=== PATIENT | male | born 1965 | race Caucasian/White ===

== ENCOUNTER 2020-03-15 17:16 | Emergency (ER) | payer MEDICAID ==
[~2020-03-15] VITALS: Ht 182.9 cm; Wt 118.2 kg
[~2020-03-15 17:16] MED LIST: INSU100V9 SQ; LISI10TA4 PO; METO50TA16 PO; PRED10TA; [UNRECOGNIZED DRUG - CODE] PO
[2020-03-15] MEDS ORDERED: normal saline 1000ml 1,000 ML IV ONE (18:10)
[2020-03-15 18:13] LABS: MEAN CORPUSCULAR HGB CONC 34.2 g/dL (33.0-36.5); MEAN PLATELET VOLUME 8.9 FL (7.4-10.4)
[2020-03-15 18:15] LABS: BASOPHILS % (AUTO) 0.7 % (0-1); EOSINOPHILS % (AUTO) 0.6 % (0-6); HEMATOCRIT 45.8 % (42.0-52.0); HEMOGLOBIN 15.6 g/dl (14.0-17.9); LYMPHOCYTES # (AUTO) 0.7 X10'3 (1.1-4.8); LYMPHOCYTES % (AUTO) 26.8 % (21-51); MEAN CORPUSCULAR HEMOGLOBIN 29.8 PG (27.0-31.0); MEAN CORPUSCULAR VOLUME 87.2 FL (78-98); MONOCYTES # (AUTO) 0.3 X10'3 (0-0.9); MONOCYTES % (AUTO) 11.5 % (2-12); NEUTROPHILS # (AUTO) 1.7 X10'3 (1.8-7.7); NEUTROPHILS % (AUTO) 60.4 % (42-75); PLATELET COUNT 137 X10'3 (140-440); RED BLOOD COUNT 5.25 X10'6 (4.70-6.10); RED CELL DISTRIBUTION WIDTH 13.5 % (11.5-14.5); WHITE BLOOD COUNT 2.7 X10'3 (4.5-11.0)
[2020-03-15 18:27] LABS: ALANINE AMINOTRANSFERASE 42 U/L (12-78); ALBUMIN/GLOBULIN RATIO 0.7 (1.1-1.5); ALKALINE PHOSPHATASE 92 IU/L (46-116); ANION GAP 11 (8-16); ASPARTATE AMINO TRANSFERASE 23 U/L (10-37); BILIRUBIN,TOTAL 0.4 MG/DL (0.1-1.0); BLOOD UREA NITROGEN 21 MG/DL (7-18); BUN/CREATININE RATIO 17.5 (5.4-32.0); CALCIUM 9.3 MG/DL (8.5-10.1); CHLORIDE 95 MMOL/L (99-107); POTASSIUM 4.5 MMOL/L (3.5-5.1); SODIUM 131 MMOL/L (135-145); TOTAL CARBON DIOXIDE 25.5 MMOL/L (24-32); TOTAL PROTEIN 7.3 G/DL (6.4-8.2); eGFR 63 ML/MIN
[2020-03-15 18:31] LABS: GLUCOSE 544 MG/DL (70-104)
[2020-03-15] MEDS ORDERED: acetaminophen 325mg tablet PO ONE (19:00)
--- NOTE | 2020-03-15 19:00 | NUR ---
PT STATES HE WOULD LIKE TO LEAVE AMA. ED SUPRIYA BLACKBURN MADE AWARE OF PT REQUEST. RECEVIED VERBAL ORDER FOR 650MG TYLENOL PO X1 DOSE NOW. PT STATES HE DOES WANT TYLENOL AND COVID SWAB BUT DOES NOT WANT THE REMAINDER OF FLUID BOLUS
[2020-03-15 19:16] VITALS: BP 158/108
[2020-03-15 22:46] LABS: PLATELET ESTIMATE DECREASED; TOTAL CELLS COUNTED 100
== END 2020-03-15 19:14 | disposition left against medical advice (07) ==
LOC: ER 17:17
DX: U07.1 COVID-19 (principal); E11.9 Type 2 diabetes mellitus without complications; I10 Essential (primary) hypertension
CPT/HCPCS: 36415; 71045; 80053; 82948; 83880; 84484; 85007; 85025; 87635; 93005; 96360; 99285; J7030

== ENCOUNTER 2021-12-02 20:05 | Emergency (ER) | payer MEDICAID ==
[~2021-12-02] VITALS: Ht 182.9 cm; Wt 118.2 kg
[~2021-12-02 20:05] MED LIST changes: +CLIN-167 PO; +LISI10TA27 PO; -LISI10TA4 PO; -[UNRECOGNIZED DRUG - CODE] PO
[2021-12-02 20:22] VITALS: BP 172/108
== END 2021-12-02 21:43 | disposition left against medical advice (07) ==
LOC: ER 20:06
DX: K08.89 Other specified disorders of teeth and supporting structures (principal); Z53.21 Procedure and treatment not carried out due to patient leaving prior to being seen by health care provider

== ENCOUNTER 2023-06-26 19:13 | Inpatient (IN) | payer MEDICAID ==
[~2023-06-26] VITALS: Ht 182.9 cm; Wt 119.8 kg
[2023-06-26 20:09] LABS: CLARITY,URINE CLOUDY (Clear); COLOR,URINE RED (Yellow); UA COLLECTION TYPE NON-SPECIFIED
[2023-06-26 20:12] LABS: BACTERIA,URINE FEW /HPF (Neg); RBC,URINE TNTC /HPF (0-2); SQUAMOUS EPITHELIAL CELL,UR FEW /LPF (FEW)
[2023-06-26] MEDS: CefTRIAXone 2gm/D5W 50ml BAG 50 ML IV SCH (20:18)
[2023-06-26] MEDS: HYDROmorphone 1 mg/ml syringe IV ONE (20:19)
[2023-06-26] MEDS: LidoCAINE 2% Topical Jelly 11mL syringe (UROJET) TOP ONE (20:23)
[2023-06-26 20:34] LABS: BASOPHILS # (AUTO) 0.1 X10'3 (0-0.2); BASOPHILS % (AUTO) 1.1 % (0-1); EOSINOPHILS # (AUTO) 0.2 X10'3 (0-0.9); EOSINOPHILS % (AUTO) 2.5 % (0-6); HEMOGLOBIN 16.4 g/dl (14.0-17.9); LYMPHOCYTES # (AUTO) 1.3 X10'3 (1.1-4.8); LYMPHOCYTES % (AUTO) 18.9 % (21-51); MEAN CORPUSCULAR HEMOGLOBIN 29.2 PG (27.0-31.0); MEAN CORPUSCULAR HGB CONC 34.2 g/dL (33.0-36.5); MEAN CORPUSCULAR VOLUME 85.6 FL (78-98); MEAN PLATELET VOLUME 8.7 FL (7.4-10.4); MONOCYTES # (AUTO) 0.6 X10'3 (0-0.9); MONOCYTES % (AUTO) 8.9 % (2-12); NEUTROPHILS # (AUTO) 4.8 X10'3 (1.8-7.7); NEUTROPHILS % (AUTO) 68.6 % (42-75); PLATELET COUNT 223 X10'3 (140-440); RED BLOOD COUNT 5.61 X10'6 (4.70-6.10); RED CELL DISTRIBUTION WIDTH 14.2 % (11.5-14.5); WHITE BLOOD COUNT 6.9 X10'3 (4.5-11.0)
[2023-06-26 22:03] LABS: ALANINE AMINOTRANSFERASE 28 U/L (12-78); ALBUMIN 3.2 G/DL (3.4-5.0); ALBUMIN/GLOBULIN RATIO 0.8 (1.1-1.5); ALKALINE PHOSPHATASE 50 IU/L (46-116); ANION GAP 11 (8-16); ASPARTATE AMINO TRANSFERASE 15 U/L (10-37); BILIRUBIN,TOTAL 0.4 MG/DL (0.1-1.0); BLOOD UREA NITROGEN 16 MG/DL (7-18); BUN/CREATININE RATIO 13.3 (10.0-20.0); CHLORIDE 104 MMOL/L (99-107); GLUCOSE 247 MG/DL (70-104); LIPASE 43 U/L (16-77); MAGNESIUM 2.1 MG/DL (1.5-2.4); POTASSIUM 4.1 MMOL/L (3.5-5.1); SODIUM 140 MMOL/L (135-145); TOTAL CARBON DIOXIDE 24.6 MMOL/L (24-32); TOTAL PROTEIN 7.2 G/DL (6.4-8.2); eCRCL 65 ML/MIN; eGFR 62 ML/MIN
[2023-06-26] MEDS ORDERED: potassium Cl 40MEQ/1/2NS 520ml 520 ML IV PRN (23:50)
[2023-06-26] MEDS ORDERED: magnesium hydroxide 30ml (MOM) UD suspension PO PRN (23:50)
[2023-06-26] MEDS ORDERED: magnesium 4gm in 100ml NS 100 ML IV PRN (23:50)
[2023-06-26] MEDS ORDERED: glucagon, human recombinant 1mg kit SUBCUT PRN (23:50)
[2023-06-26] MEDS ORDERED: magnesium 2GM in 50ml NS 50 ML IV PRN (23:50)
[2023-06-26] MEDS ORDERED: dextrose 50%-water 50ml dispensing syringe IV PRN ×2 (23:50)
[2023-06-26] MEDS ORDERED: DEXTROSE 15 GM of carb/4 tabs (each vial/BOTTLE has 4 tablets) PO PRN ×2 (23:50)
[2023-06-26] MEDS ORDERED: acetaminophen 325mg tablet PO PRN (23:50)
[2023-06-26] MEDS ORDERED: mag hydrox/Alum hydrox/simeth 30ml oral suspension PO PRN (23:50)
[2023-06-26] MEDS ORDERED: potassium Cl 20 mEq SR tablet PO PRN ×2 (23:50)
[2023-06-26] MEDS ORDERED: magnesium Cl slow-release 64mg tablet PO PRN (23:50)
[2023-06-27] MEDS: normal saline 1000ml 1,000 ML IV SCH (00:08)
[2023-06-27] MEDS: MESSAGE TO PHARMACY PO ONE (00:08)
[2023-06-27] MEDS ORDERED: EMPA25TA (04:35)
[2023-06-27] MEDS: K and/or MAG REPLACEMENT MC SCH (08:00)
[2023-06-27] MEDS: docusate sod 100mg capsule PO SCH (08:00)
[2023-06-27 08:50] LABS: HEMOGLOBIN A1C 10.1 % (4.5-6.2)
[2023-06-27 08:51] LABS: BASOPHILS # (AUTO) 0.1 X10'3 (0-0.2); BASOPHILS % (AUTO) 0.8 % (0-1); EOSINOPHILS # (AUTO) 0.1 X10'3 (0-0.9); EOSINOPHILS % (AUTO) 2.3 % (0-6); HEMOGLOBIN 15.2 g/dl (14.0-17.9); LYMPHOCYTES # (AUTO) 1.2 X10'3 (1.1-4.8); LYMPHOCYTES % (AUTO) 19.2 % (21-51); MEAN CORPUSCULAR HEMOGLOBIN 29.1 PG (27.0-31.0); MEAN CORPUSCULAR HGB CONC 33.9 g/dL (33.0-36.5); MEAN PLATELET VOLUME 8.1 FL (7.4-10.4); MONOCYTES # (AUTO) 0.6 X10'3 (0-0.9); MONOCYTES % (AUTO) 8.9 % (2-12); NEUTROPHILS # (AUTO) 4.3 X10'3 (1.8-7.7); NEUTROPHILS % (AUTO) 68.8 % (42-75); PLATELET COUNT 186 X10'3 (140-440); RED BLOOD COUNT 5.24 X10'6 (4.70-6.10); RED CELL DISTRIBUTION WIDTH 14.4 % (11.5-14.5); WHITE BLOOD COUNT 6.3 X10'3 (4.5-11.0)
[2023-06-27 08:59] LABS: ALANINE AMINOTRANSFERASE 28 U/L (12-78); ALBUMIN 2.9 G/DL (3.4-5.0); ALBUMIN/GLOBULIN RATIO 0.7 (1.1-1.5); ALKALINE PHOSPHATASE 52 IU/L (46-116); ANION GAP 9 (8-16); ASPARTATE AMINO TRANSFERASE 11 U/L (10-37); BILIRUBIN,TOTAL 0.4 MG/DL (0.1-1.0); BLOOD UREA NITROGEN 16 MG/DL (7-18); BUN/CREATININE RATIO 14.2 (10.0-20.0); CALCIUM 8.9 MG/DL (8.5-10.1); CHLORIDE 104 MMOL/L (99-107); CREATININE 1.13 MG/DL (0.60-1.10); GLUCOSE 289 MG/DL (70-104); MAGNESIUM 2.3 MG/DL (1.5-2.4); POTASSIUM 4.3 MMOL/L (3.5-5.1); SODIUM 138 MMOL/L (135-145); TOTAL CARBON DIOXIDE 25.3 MMOL/L (24-32); TOTAL PROTEIN 6.8 G/DL (6.4-8.2); eCRCL 69 ML/MIN; eGFR 67 ML/MIN
[2023-06-27 10:30] VITALS: BP 154/91; PULSE 98; RESP 20; TEMP 98.7; O2SAT 92
[2023-06-27] MEDS: metoprolol tartrate 50mg tablet PO SCH (12:43)
[2023-06-27] MEDS: lisinopril 10 MG tablet PO SCH (12:43)
[2023-06-27 13:03] VITALS: RESP 16; O2SAT 96
[2023-06-27] MEDS: insulin Lispro (HumaLOG) vial - multi-dose SQ SCH (13:27)
[2023-06-27 13:29] LABS: URINE AMPHETAMINE SCREEN POSITIVE (Neg); URINE BARBITUATE SCREEN NEGATIVE (Neg); URINE BENZODIAZEPINES SCREEN NEGATIVE (Neg); URINE CANNABINOID SCREEN NEGATIVE (Neg); URINE COCAINE SCREEN NEGATIVE (Neg); URINE METHADONE SCREEN NEGATIVE (Neg); URINE OPIATE SCREEN NEGATIVE (Neg); URINE PHENCYCLIDINE SCREEN NEGATIVE (Neg)
[2023-06-27] MEDS: HYDROcodone/acetaminophen 5mg/325mg tablet PO PRN (16:39)
[2023-06-27 18:00] VITALS: BP 128/74; PULSE 79; RESP 14; TEMP 98.1; O2SAT 91
[2023-06-27 20:00] VITALS: RESP 14; O2SAT 91
[2023-06-27] MEDS ORDERED: metoprolol tartrate 50mg tablet PO SCH (20:00)
[2023-06-27] MEDS: CefTRIAXone/D5W-Rocephin 1gm 50 ML IV SCH (20:52)
[2023-06-27] MEDS: insulin glargine (Lantus) pen - multi-dose SQ SCH (21:33)
[2023-06-27 22:00] VITALS: BP 109/79; PULSE 69; RESP 18; TEMP 98.6; O2SAT 94
[2023-06-27] MEDS: temazepam 15mg capsule PO PRN (23:09)
[2023-06-28] MEDS: ondansetron/PF 4mg/2ml inj IV PRN (05:02)
[2023-06-28 06:00] VITALS: BP 132/84; PULSE 76; RESP 16; TEMP 97.2; O2SAT 96
[2023-06-28 06:36] LABS: BASOPHILS # (AUTO) 0.1 X10'3 (0-0.2); BASOPHILS % (AUTO) 0.8 % (0-1); EOSINOPHILS # (AUTO) 0.2 X10'3 (0-0.9); EOSINOPHILS % (AUTO) 2.7 % (0-6); HEMATOCRIT 46.4 % (42.0-52.0); LYMPHOCYTES # (AUTO) 1.7 X10'3 (1.1-4.8); LYMPHOCYTES % (AUTO) 25.3 % (21-51); MEAN CORPUSCULAR HEMOGLOBIN 29.7 PG (27.0-31.0); MEAN CORPUSCULAR HGB CONC 34.5 g/dL (33.0-36.5); MEAN CORPUSCULAR VOLUME 86.2 FL (78-98); MEAN PLATELET VOLUME 7.9 FL (7.4-10.4); MONOCYTES # (AUTO) 0.7 X10'3 (0-0.9); MONOCYTES % (AUTO) 10.1 % (2-12); NEUTROPHILS # (AUTO) 4.2 X10'3 (1.8-7.7); NEUTROPHILS % (AUTO) 61.1 % (42-75); PLATELET COUNT 206 X10'3 (140-440); RED BLOOD COUNT 5.39 X10'6 (4.70-6.10); RED CELL DISTRIBUTION WIDTH 13.9 % (11.5-14.5); WHITE BLOOD COUNT 6.8 X10'3 (4.5-11.0)
[2023-06-28 07:03] LABS: ALANINE AMINOTRANSFERASE 26 U/L (12-78); ALBUMIN 2.9 G/DL (3.4-5.0); ALBUMIN/GLOBULIN RATIO 0.7 (1.1-1.5); ALKALINE PHOSPHATASE 53 IU/L (46-116); ANION GAP 8 (8-16); ASPARTATE AMINO TRANSFERASE 10 U/L (10-37); BILIRUBIN,TOTAL 0.4 MG/DL (0.1-1.0); BLOOD UREA NITROGEN 15 MG/DL (7-18); BUN/CREATININE RATIO 14.4 (10.0-20.0); CALCIUM 8.8 MG/DL (8.5-10.1); CHLORIDE 103 MMOL/L (99-107); CREATININE 1.04 MG/DL (0.60-1.10); GLUCOSE 183 MG/DL (70-104); MAGNESIUM 2.1 MG/DL (1.5-2.4); POTASSIUM 4.2 MMOL/L (3.5-5.1); SODIUM 137 MMOL/L (135-145); TOTAL CARBON DIOXIDE 25.9 MMOL/L (24-32); TOTAL PROTEIN 7.2 G/DL (6.4-8.2); eCRCL 85 ML/MIN; eGFR 73 ML/MIN
[2023-06-28 08:55] VITALS: RESP 16; O2SAT 95
[2023-06-28 10:00] VITALS: BP 125/75; PULSE 86; RESP 16; TEMP 97.4; O2SAT 95
== END 2023-06-28 10:45 | disposition home or self-care (01) | DRG 463 ==
LOC: ER 19:14 → ED HOLD 23:50 → ORTHO 4S 06-27 07:39
PROVIDERS: ADMIT Internal Medicine; ATTEND Family Medicine
DX: N30.01 Acute cystitis with hematuria (principal); N17.0 Acute kidney failure with tubular necrosis; E11.9 Type 2 diabetes mellitus without complications; G47.33 Obstructive sleep apnea (adult) (pediatric); I10 Essential (primary) hypertension; N20.0 Calculus of kidney; N43.3 Hydrocele, unspecified; Z79.4 Long term (current) use of insulin; Z79.84 Long term (current) use of oral hypoglycemic drugs; Z79.899 Other long term (current) drug therapy; Z87.440 Personal history of urinary (tract) infections
CPT/HCPCS: 36415; 71045; 74176; 80053; 80305; 81001; 82948; 83036; 83605; 83690; 83735; 84145; 85025; 87040; 87081; 87088; 93005; 99285; G0378; J0696; J1170; J1815; J2405; J7030

== ENCOUNTER 2023-12-06 14:46 | Emergency (ER) | payer MEDICAID, SELFPAY ==
[~2023-12-06] VITALS: Ht 182.9 cm; Wt 115.4 kg
[~2023-12-06 14:46] MED LIST changes: -CLIN-167 PO; +EMPA25TA; -PRED10TA
[2023-12-06 14:52] VITALS: BP 135/95; PULSE 117; TEMP 97.8; O2SAT 96
[2023-12-06] MEDS ORDERED: METH-798 PO (15:53)
[2023-12-06] MEDS ORDERED: LIDO700A32 TOP (15:53)
[2023-12-06] MEDS: dexamethasone sod phosphate 10mg/ml inj IM STA (16:04)
[2023-12-06] MEDS: cyclobenzaprine 10mg tablet PO ONE (16:05)
[2023-12-06] MEDS: ketorolac trometh 30MG/ML vial 30 MG/ML VIAL IM ONE (16:05)
[2023-12-06 16:06] VITALS: RESP 16
[2023-12-06] MEDS: HYDROcodone/acetaminophen 5mg/325mg tablet PO ONE (16:06)
[2023-12-06] MEDS: ondansetron 4mg rapidly disintigrating tab PO ONE (16:06)
== END 2023-12-06 16:46 | disposition home or self-care (01) ==
LOC: ER 14:46
DX: M54.50 Low back pain, unspecified (principal); E11.9 Type 2 diabetes mellitus without complications; G47.39 Other sleep apnea; Z60.2 Problems related to living alone; Z79.899 Other long term (current) drug therapy; Z79.4 Long term (current) use of insulin
CPT/HCPCS: 96372; 99284; J1100; J1885

== ENCOUNTER 2024-08-14 23:43 | Emergency (ER) | payer MEDICAID ==
[~2024-08-14] VITALS: Ht 182.9 cm; Wt 160.0 kg
[~2024-08-14 23:43] MED LIST changes: +LIDO700A32 TOP; +METH-798 PO
[2024-08-15 00:09] LABS: BASOPHILS # (AUTO) 0.1 X10'3 (0-0.2); BASOPHILS % (AUTO) 1.8 % (0-1); EOSINOPHILS # (AUTO) 0.1 X10'3 (0-0.9); EOSINOPHILS % (AUTO) 3.4 % (0-6); HEMATOCRIT 44.2 % (42.0-52.0); HEMOGLOBIN 15.4 g/dl (14.0-17.9); LYMPHOCYTES # (AUTO) 1.1 X10'3 (1.1-4.8); LYMPHOCYTES % (AUTO) 27.8 % (21-51); MEAN CORPUSCULAR HEMOGLOBIN 29.1 PG (27.0-31.0); MEAN CORPUSCULAR HGB CONC 34.9 g/dL (33.0-36.5); MEAN CORPUSCULAR VOLUME 83.5 FL (78-98); MEAN PLATELET VOLUME 8.4 FL (7.4-10.4); MONOCYTES # (AUTO) 0.4 X10'3 (0-0.9); MONOCYTES % (AUTO) 9.3 % (2-12); NEUTROPHILS # (AUTO) 2.3 X10'3 (1.8-7.7); NEUTROPHILS % (AUTO) 57.7 % (42-75); PLATELET COUNT 159 X10'3 (140-440)
--- NOTE | 2024-08-15 00:14 | ELECTROCARDIOGRAPH REPORT ---
[facility] Test Date: 2024-08-15 Test Time: 00:11:37 Pat Name: RIRI CLAYTON Department: [facility]-ER Patient ID: [id number] Room: Gender: M Systems Applications Programming Lead: : 1965 Requested By: FAMILIA RUDD Order Number: [id number] Reading MD: Dr. Jacob Mcneill Measurements Intervals [place] Rate: 81 P: -42 NE: 111 QRS: 49 QRSD: 108 T: 62 QT: 391 QTc: 454 Interpretive Statements Sinus rhythm Borderline short NE interval Low voltage, precordial leads Baseline wander in lead(s) V6 Electronically Signed On 08-16-2024 21:43:[address] Jacob Mcneill Please click the below link to view image of tracing.
[2024-08-15 00:17] LABS: ALANINE AMINOTRANSFERASE 38 U/L (12-78); ALBUMIN 3.4 G/DL (3.4-5.0); ALBUMIN/GLOBULIN RATIO 1.1 (1.1-1.5); ALKALINE PHOSPHATASE 70 IU/L (46-116); ANION GAP 7 (8-16); ASPARTATE AMINO TRANSFERASE 22 U/L (10-37); BILIRUBIN,TOTAL 0.4 MG/DL (0.1-1.0); BLOOD UREA NITROGEN 19 MG/DL (7-18); BUN/CREATININE RATIO 12.9 (10.0-20.0); CALCIUM 8.9 MG/DL (8.5-10.1); CHLORIDE 98 MMOL/L (99-107); CREATININE 1.47 MG/DL (0.60-1.10); LIPASE 39 U/L (16-77); POTASSIUM 4.3 MMOL/L (3.5-5.1); SODIUM 132 MMOL/L (135-145); TOTAL CARBON DIOXIDE 27.1 MMOL/L (24-32); TOTAL PROTEIN 6.5 G/DL (6.4-8.2); eCRCL 59 ML/MIN; eGFR 49 ML/MIN
[2024-08-15 00:22] LABS: GLUCOSE 465 MG/DL (70-104)
[2024-08-15] MEDS: ondansetron/PF 4mg/2ml inj IV ONE (00:38)
[2024-08-15] MEDS: morphine 4 MG/ML inj SYRINge IV ONE (00:39)
[2024-08-15] MEDS: normal saline 1000ML IV soln IVB ONE (00:39)
[2024-08-15 02:32] LABS: BILIRUBIN,URINE NEGATIVE (Neg); CLARITY,URINE CLEAR (Clear); COLOR,URINE YELLOW (Yellow); GLUCOSE, URINE >=1000 mg/dl (Neg); KETONES,URINE TRACE mg/dl (Neg); LEUKOCYTE ESTERASE ,URINE NEGATIVE (Neg); NITRITES, URINE NEGATIVE (Neg); OCCULT BLOOD,URINE MODERATE (Neg); PROTEIN,URINE NEGATIVE (Neg); UROBILINOGEN,URINE 0.2 E.U/dL (0.2-1.0)
[2024-08-15 02:35] LABS: UA COLLECTION TYPE VOIDED
[2024-08-15 02:37] LABS: BACTERIA,URINE NONE SEEN /HPF (Neg); SQUAMOUS EPITHELIAL CELL,UR NONE SEEN /LPF (FEW); WBC,URINE NONE SEEN /HPF (0-4)
--- NOTE | 2024-08-15 03:25 | Physician Documentation ---
History of Present Illness ~ Chief Complaint: Abdominal Pain Stated Complaint: ABD PAIN Time Seen by MD: 03:19 Primary Medical Doctor: NONE Mode of Arrival: POV HPI Patient presents to the emergency room with left lower quadrant abdominal pain that began at 5:00 p.m. yesterday. No prior instances. He endorses still passing gas. Pain has eased up a bit however it is still persistent and he can not get comfortable. Patient does have a history of diabetes and he states he has been weaning himself off his metformin. Medication Reconciliation Allergies: Coded Allergies: No Known Allergies (Unverified , 12/06/23) Scheduled Empagliflozin (Jardiance), 1 TAB QAM, (Reported) Insulin Glargine,Hum.rec.anlog (Lantus), 30 UNIT SQ HS Lidocaine (Lidoderm), 1 PATCH TOP DAILY Lisinopril (Lisinopril), 10 MG PO DAILY Methocarbamol (Methocarbamol), 1 TAB PO Q8H Metoprolol Tartrate (Metoprolol Tartrate), 1 TAB PO Q12H, (Reported) Past Medical History Past Medical History: Sleep Apnea, UTI, Diabetes Past Surgical History: no surgical history Alcohol Use: None Drug Use: none Lives with: Alone Lives In: Home Review of Systems ROS All review of systems negative except as per HPI Physical Exam Vital Signs: Temperature: 97.3, Source: Temporal, Heart Rate: 68, Respiratory Rate: 16, BP: 150/82, Pulse Oximetry: 98, Weight: 160.000 Oxygen Flow Rate: 0 Physical Exam General: Patient is awake, alert, oriented x4 in no acute distress Head: Normocephalic and atraumatic. Eyes: Conjunctival normal. EOMI. PERRL. ENT: Mucous membranes moist. Neck: Supple, trachea is midline. Chest: Clear to auscultation bilaterally without rales, rhonchi, or wheezes. There is no accessory muscle use or retractions. Cardiac: RRR without murmurs, gallops, or rubs. Abd: Soft, nondistended, positive tenderness to palpation to left lower quadrant without peritonitis. Progress Progress Note Upon re-evaluation patient states that his pain is now minimal. Discussed CT findings and labs with on-call urologist, Dr. Abraham, who is willing to see patient on outside basis. Specifically discussed ruptured calices in light of a 0.9 cm stone Results/Orders Results/Orders Orders - URIEL PACK MD Ct Abdomen Pelvis (08/15/24 03:50) Completed Orders - URIEL PACK MD Cbc/Diff (08/14/24 23:47) Lipase (08/14/24 23:47) CMP (08/14/24 23:47) Stat Ekg (08/15/24 ) Ondansetron Inj. (Zofran 4mg/2ml Vial) (08/15/24 00:35) Morphine 4mg/Ml Inj. (Morphine Inj.) (08/15/24 00:35) Normal Saline 1000ml (Sodium Chloride 10 (08/15/24 00:35) Ua W/Microscopic, Cult If Ind (08/15/24 02:20) Acetaminophen 1,000mg/100ml Iv (Ofirmev (08/15/24 03:35) Insulin Regular, Human (Humulin R 10 Uni (08/15/24 03:35) Ct Abdomen Pelvis (08/15/24 03:50) Medications Received in ER Medications (Trade) Dose Ordered Sig/Sherry Route PRN Reason Start Time Stop Time Status Last Admin Dose Admin (Zofran 4mg/2ml vial) 4 mg ONCE ONCE IV 08/15/24 00:35 08/15/24 00:36 DC 08/15/24 00:38 4 MG (morphine inj.) 4 mg ONCE ONCE IV 08/15/24 00:35 08/15/24 00:36 DC 08/15/24 00:39 4 MG (sodium chloride 1000ml IV soln) 2,000 ml ONCE ONCE IVB 08/15/24 00:35 08/15/24 00:36 DC 08/15/24 00:39 2,000 ML Acetaminophen 100 ml @ 400 mls/hr ONCE ONCE IV 08/15/24 03:35 08/15/24 03:49 DC 08/15/24 03:51 400 MLS/HR (HumuLIN R 10 units per 0.1 ML syringe) 10 units ONCE ONCE IV 08/15/24 03:35 08/15/24 03:36 DC 08/15/24 03:52 10 UNITS Vital Signs 08/14/24 08/15/24 08/15/24 08/15/24 23:51 00:26 00:39 01:42 Temp 97.3 Pulse 89 Resp 24 16 16 16 B/P (MAP) 165/93 Pulse Ox 97 08/15/24 03:00 Pulse 68 Resp 16 B/P (MAP) 150/82 (104) Pulse Ox 98 O2 Flow Rate 0 Laboratory Tests Test 08/14/24 23:57 08/15/24 02:20 08/15/24 02:33 White Blood Count 4.0 L Red Blood Count 5.30 Hemoglobin 15.4 Hematocrit 44.2 Mean Corpuscular Volume 83.5 Mean Corpuscular Hemoglobin 29.1 Mean Corpuscular Hemoglobin Concent 34.9 Red Cell Distribution Width 14.0 Platelet Count 159 Mean Platelet Volume 8.4 Neutrophils (%) (Auto) 57.7 Lymphocytes (%) (Auto) 27.8 Monocytes (%) (Auto) 9.3 Eosinophils (%) (Auto) 3.4 Basophils (%) (Auto) 1.8 H Neutrophils # (Auto) 2.3 Lymphocytes # (Auto) 1.1 Monocytes # (Auto) 0.4 Eosinophils # (Auto) 0.1 Basophils # (Auto) 0.1 CBC Comment Sodium Level 132 L Potassium Level 4.3 Chloride Level 98 L Carbon Dioxide Level 27.1 Anion Gap 7 L Blood Urea Nitrogen 19 H Creatinine 1.47 H Estimated GFR/1.73 m2 49 BUN/Creatinine Ratio 12.9 Glucose Level 465 *H Calcium Level 8.9 Total Bilirubin 0.4 Aspartate Amino Transf (AST/SGOT) 22 Alanine Aminotransferase (ALT/SGPT) 38 Alkaline Phosphatase 70 Total Protein 6.5 Albumin 3.4 Globulin 3.1 Albumin/Globulin Ratio 1.1 Lipase 39 Chemistry Comments Urine Specimen Description Voided Urine Color Yellow Urine Clarity Clear Urine pH 6.0 Urine Specific [place] 1.010 Urine Protein Negative Urine Glucose (UA) >=1000 H Urine Ketones Trace H Urine Occult Blood Moderate H Urine Nitrite Negative Urine Bilirubin Negative Urine Urobilinogen 0.2 Urine Leukocyte Esterase Negative Urine RBC 10-20 Urine WBC None seen Urine Squamous Epithelial Cells None seen Urine Bacteria None seen Urine Culture Indicated Not ind Volume Urine Centrifuged 10 ml Urine Comment Glucometer 397 H Medical Decision Making Findings Patient presented to the emergency room with left-sided abdominal pain differentials include but are not limited to diverticulitis, constipation, kidney stone, pyelonephritis, pancreatitis therefore emergent labs and imaging indicated. Imaging significant for 0.9 cm stone causing ruptured calices. This was discussed with on-call urologist he was willing to see patient outside basis. Patient's pain is controlled. Although patient does have a mild decreased kidney function compared to previous he is not suffering from acute kidney injury and there was no evidence of urinary tract infection. ER precautions regarding uncontrolled pain and fevers discussed. The need to call urologist today to arrange for follow up also discussed. Noted hyperglycemia greatly improved. No evidence of DKA Departure Disposition: HOME / SELF CARE / HOMELESS Impression: Primary Impression: Kidney stone Additional Impression: Uncontrolled diabetes mellitus Condition: Improved Discharge Instructions: Kidney Stones Additional Instructions: You have a large kidney stone and need to follow up with urologist. Call urologist today to arrange for follow up. Return to the emergency room for uncontrolled pain despite taking pain medications or fevers. Follow up with your doctor for management of your blood sugars. Referrals: NO PRIMARY CARE PROVIDER (PCP) ANGELA ABRAHAM MD Prescriptions Ondansetron 8mg ODT (Ondansetron Odt) 8 Mg Tab.rapdis 1 TAB PO Q6H for nausea/vomiting for 3 Days, #12 TAB 0 Refills Prov: URIEL PACK MD 08/15/24 Hydrocodone Bit/Acetaminophen 5/325 MG ([place] 5/325 MG) 5 Mg/325 Mg Tablet 1-2 TAB PO Q4-6 hours PRN for pain, #20 TAB Prov: URIEL PACK MD 08/15/24 Education Educated: Patient Educated regarding: diagnosis, treatment, need for follow up Signature Scribe Signature: No scribe Attestation: The note accurately reflects work and decisions made by me.Uriel Pack MD 08/15/24 04:42 URIEL PACK MD August 15, 2024 03:25
[2024-08-15] MEDS: acetaminophen 1,000mg/100ml IV 100 ML IV ONE (03:51)
[2024-08-15] MEDS: insulin regular, human 10 units/0.1 ml syringe IV ONE ×2 (03:52→05:54)
--- NOTE | 2024-08-15 04:03 | RADIOLOGY REPORT ---
Exam: CT CT ABDOMEN PELVIS History: Left-sided abdominal pain Comparison Study: CT CT ABDOMEN PELVIS on DOS: 06/26/23 TECHNIQUE: Multidetector CT of the abdomen and pelvis was performed from lung bases to pubic symphysi s. Imaging was performed without IV contrast. Axial, coronal and sagittal multiplanar reformats were obtained from the axial data set by the technologist. Radiation optimization: All CT scans at this facility use at least one of these dose optimization ryland hniques: automated exposure control mA and/or kV adjustment per patient size (includes targeted exam s where dose is matched to clinical indication) or iterative reconstruction. Radiation Dose Information: CT Dose: CTDI volume is 33 mGy. Dose-length product is 2014.8 mGy*cm FINDINGS: Evaluation of solid organs is limited due to lack of intravenous contrast use. Imaged portions of the lung bases appear unremarkable. There is a small hiatal hernia. There are cor onary artery calcifications. Mild diffuse hepatic steatosis. Gallbladder, spleen, pancreas and adrenal glands appear unremarkable . The right kidney appears unremarkable. There is a 0.9 cm obstructing calculus in the left proximal ureter with mild left hydronephrosis and moderate perinephric fat stranding and fluid. No evidence of bowel obstruction or focal bowel wall thickening. No free fluid, free air, or adenopa thy. No suspicious osseous lesion. Moderate degenerative changes of the spine. IMPRESSION: 1. 0.9 cm obstructing calculus in the proximal left ureter with mild left hydronephrosis. Perinephri c fat stranding and fluid may be related to caliceal rupture and decompression. 2. Mild hepatic steatosis.
[2024-08-15] MEDS ORDERED: ONDA-245 PO (04:41)
[2024-08-15] MEDS ORDERED: HYDR-3965 PO (04:41)
[2024-08-15] MEDS: HYDROcodone/acetaminophen 5mg/325mg tablet PO ONE (05:53)
[2024-08-15 05:56] VITALS: BP 169/99; PULSE 70; TEMP 97.5; O2SAT 98
[2024-08-15 06:00] VITALS: RESP 16
== END 2024-08-15 06:01 | disposition home or self-care (01) ==
LOC: ER 23:44
DX: N20.0 Calculus of kidney (principal); E11.65 Type 2 diabetes mellitus with hyperglycemia; G47.30 Sleep apnea, unspecified
CPT/HCPCS: 36415; 74176; 80053; 81001; 82948; 83690; 85025; 93005; 96361; 96365; 96375; 96376; 99285; J0131; J1815; J2270; J2405; J7030

== ENCOUNTER 2024-08-25 22:03 | Emergency (ER) | payer MEDICAID ==
[~2024-08-25] VITALS: Ht 182.9 cm; Wt 118.2 kg
[~2024-08-25 22:03] MED LIST changes: +HYDR-3965 PO; +ONDA-245 PO
[2024-08-25 22:04] VITALS: TEMP 98.8
[2024-08-25 22:39] LABS: BASOPHILS # (AUTO) 0.1 X10'3 (0-0.2); BASOPHILS % (AUTO) 0.4 % (0-1); EOSINOPHILS # (AUTO) 0.1 X10'3 (0-0.9); EOSINOPHILS % (AUTO) 0.6 % (0-6); HEMATOCRIT 45.5 % (42.0-52.0); HEMOGLOBIN 15.3 g/dl (14.0-17.9); LYMPHOCYTES # (AUTO) 1.1 X10'3 (1.1-4.8); LYMPHOCYTES % (AUTO) 8.5 % (21-51); MEAN CORPUSCULAR HEMOGLOBIN 28.5 PG (27.0-31.0); MEAN CORPUSCULAR HGB CONC 33.6 g/dL (33.0-36.5); MEAN CORPUSCULAR VOLUME 84.8 FL (78-98); MEAN PLATELET VOLUME 7.7 FL (7.4-10.4); MONOCYTES # (AUTO) 1.3 X10'3 (0-0.9); MONOCYTES % (AUTO) 9.5 % (2-12); NEUTROPHILS # (AUTO) 10.9 X10'3 (1.8-7.7); PLATELET COUNT 216 X10'3 (140-440); RED BLOOD COUNT 5.37 X10'6 (4.70-6.10); RED CELL DISTRIBUTION WIDTH 14.1 % (11.5-14.5); WHITE BLOOD COUNT 13.4 X10'3 (4.5-11.0)
[2024-08-25 22:57] LABS: ALANINE AMINOTRANSFERASE 39 U/L (12-78); ALBUMIN 1.9 G/DL (3.4-5.0); ALBUMIN/GLOBULIN RATIO 0.3 (1.1-1.5); ALKALINE PHOSPHATASE 205 IU/L (46-116); ANION GAP 8 (8-16); ASPARTATE AMINO TRANSFERASE 15 U/L (10-37); BILIRUBIN,TOTAL 0.3 MG/DL (0.1-1.0); BLOOD UREA NITROGEN 45 MG/DL (7-18); BUN/CREATININE RATIO 23.3 (10.0-20.0); CALCIUM 9.5 MG/DL (8.5-10.1); CHLORIDE 96 MMOL/L (99-107); CREATININE 1.93 MG/DL (0.60-1.10); LIPASE 47 U/L (16-77); POTASSIUM 5.1 MMOL/L (3.5-5.1); SODIUM 126 MMOL/L (135-145); TOTAL CARBON DIOXIDE 21.8 MMOL/L (24-32); TOTAL PROTEIN 7.6 G/DL (6.4-8.2); eCRCL 45 ML/MIN; eGFR 36 ML/MIN
[2024-08-25 23:05] LABS: GLUCOSE 672 MG/DL (70-104)
[2024-08-25 23:08] LABS: BILIRUBIN,URINE NEGATIVE (Neg); CLARITY,URINE CLEAR (Clear); COLOR,URINE YELLOW (Yellow); GLUCOSE, URINE >=1000 mg/dl (Neg); KETONES,URINE NEGATIVE (Neg); LEUKOCYTE ESTERASE ,URINE NEGATIVE (Neg); NITRITES, URINE NEGATIVE (Neg); OCCULT BLOOD,URINE TRACE-INTACT (Neg); PH,URINE 5.5 (4.8-8.0); PROTEIN,URINE NEGATIVE (Neg); UROBILINOGEN,URINE 0.2 E.U/dL (0.2-1.0)
[2024-08-25 23:09] LABS: UA COLLECTION TYPE VOIDED
[2024-08-25] MEDS: normal saline 1000ml 1,000 ML IV ONE (23:17)
[2024-08-25] MEDS: insulin NPH/REG insulin (NovoLIN 70/30) 10ml vial SQ ONE (23:20)
[2024-08-25 23:22] LABS: BACTERIA,URINE NONE SEEN /HPF (Neg); RBC,URINE NONE SEEN /HPF (0-2); SQUAMOUS EPITHELIAL CELL,UR NONE SEEN /LPF (FEW); WBC,URINE NONE SEEN /HPF (0-4)
[2024-08-26] MEDS: Insulin regular, human (NovoLIN R) inj ONE (00:14)
[2024-08-26] MEDS: insulin regular, human 10 units/0.1 ml syringe SQ ONE (00:31)
--- NOTE | 2024-08-26 00:46 | Physician Documentation ---
History of Present Illness ~ Chief Complaint: Diabetic Complication Stated Complaint: DIZZY/DM IS OUT OF CONTROL Time Seen by MD: 22:57 Primary Medical Doctor: NONE HPI This is a 59-year-old gentleman with a known history of diabetes who comes in for evaluation of my diabetes is out of control. He states that his sugars were running at 300s and 400s. He reports that he is feeling dizzy and very thirsty. No particular palliating or aggravating factors. Similar to prior hypoglycemia episodes. Denies any fever, chills, chest pain, difficulty breathing, nausea, vomiting, diarrhea, abdominal pain. The symptoms has been going on for about a month. Has not been able to get in his with his PCP. Medication Reconciliation Allergies: Coded Allergies: No Known Allergies (Unverified , 08/25/24) Scheduled Empagliflozin (Jardiance), 1 TAB QAM, (Reported) Insulin Glargine,Hum.rec.anlog (Lantus), 30 UNIT SQ HS Lidocaine (Lidoderm), 1 PATCH TOP DAILY Lisinopril (Lisinopril), 10 MG PO DAILY Methocarbamol (Methocarbamol), 1 TAB PO Q8H Metoprolol Tartrate (Metoprolol Tartrate), 1 TAB PO Q12H, (Reported) Ondansetron 8mg ODT (Ondansetron Odt), 1 TAB PO Q6H Scheduled PRN Hydrocodone Bit/Acetaminophen 5/325 MG ([place] 5/325 MG), 1-2 TAB PO Q4-6 hours PRN for pain Past Medical History Past Medical History: Sleep Apnea, UTI, Diabetes Past Surgical History: no surgical history Alcohol Use: None Drug Use: none Lives with: Alone Lives In: Home Review of Systems ROS 10 point review of systems was performed and unless noted above in HPI is negative for acute process/complaint. Physical Exam Vital Signs: Temperature: 98.8, Source: Oral, Heart Rate: 105, Respiratory Rate: 19, BP: 188/113, Pulse Oximetry: 93, Weight: 118.180 Oxygen Flow Rate: 0 Physical Exam GENERAL: Awake, alert, oriented, GCS 15, no apparent distress, non-toxic appearing, answers questions, follows commands appropriately. HEENT: Atraumatic, normocephalic, pupils equal, extraocular muscles intact, sclerae anicteric, mucus membranes moist, oropharynx is clear, no stridor. NECK: supple, full active range of motion, trachea midline, no thyromegaly, no lymphadenopathy, no JVD. CARDIOVASCULAR: Tachycardic and regular rate/rhythm, no murmurs/gallops/rubs, Pulses are 2+ in all extremities and symmetric. Capillary refill less than 2 seconds. PULMONARY: Nonlabored, good air movement ,no respiratory distress, speaking in full sentences, clear to auscultation bilaterally, no wheezing, no ronchi, no rales, no accessory muscle use. GASTROINTESTINAL: Soft, non-tender, non-distended, normal active bowel sounds, no organomegaly, no pulsatile masses, no CVA tenderness. NEUROLOGIC: Lucid with normal mental status. Normal facial symmetry. Moves all extremities symmetrically and with purpose. No truncal ataxia. Speech is fluid without evidence of dysarthria or aphasia, no focal deficits appreciated. MUSCULOSKELETAL: There is full range of motion of all extremities. There is no joint pain or joint swelling or joint erythema. There is no muscle pain or tenderness or swelling. EXTREMITIES: warm, well-perfused, no cyanosis, no clubbing, no edema, no acute deformities. Skin: warm, dry, no rashes or lesions, no jaundice, no petechiae orpurpura. No ecchymosis. PSYCHIATRIC: Normal affect, normal insight, normal concentration. Focused exam: [] Progress Results/Orders Results/Orders Completed Orders - MICHAEL YAÑEZ DO Cbc/Diff (08/25/24 22:11) BMP (08/25/24 22:11) Lipase (08/25/24 22:11) CMP (08/25/24 22:11) Normal Saline 1000ml (Sodium Chloride 10 (08/25/24 23:05) Ua W/Microscopic, Cult If Ind (08/25/24 22:43) Insulin Nph/Reg Insulin, Human (Novolin (08/25/24 23:20) Insulin Regular, Human Inj. (Novolin R 1 (08/26/24 00:11) Insulin Regular, Human (Humulin R 10 Uni (08/26/24 00:25) BMP (08/26/24 01:46) Medications Received in ER Medications (Trade) Dose Ordered Sig/Sherry Route PRN Reason Start Time Stop Time Status Last Admin Dose Admin Sodium Chloride 1,000 ml @ 1,000 mls/hr ONCE ONCE IV 08/25/24 23:05 08/26/24 00:04 DC 08/25/24 23:17 1,000 MLS/HR (HumuLIN R 10 units per 0.1 ML syringe) 10 units ONCE ONCE SQ 08/26/24 00:25 08/26/24 00:26 DC 08/26/24 00:31 10 UNITS Vital Signs 08/25/24 08/25/24 08/26/24 08/26/24 22:04 23:05 01:00 02:56 Temp 98.8 Pulse 117 105 105 102 Resp 26 19 16 B/P (MAP) 182/107 188/113 (138) 167/96 (119) 167/96 (119) Pulse Ox 95 93 94 94 O2 Flow Rate 0 0 1.0 08/26/24 02:58 Resp 15 B/P (MAP) Laboratory Tests Test 08/25/24 22:27 08/25/24 22:43 08/26/24 01:37 08/26/24 02:04 White Blood Count 13.4 H Red Blood Count 5.37 Hemoglobin 15.3 Hematocrit 45.5 Mean Corpuscular Volume 84.8 Mean Corpuscular Hemoglobin 28.5 Mean Corpuscular Hemoglobin Concent 33.6 Red Cell Distribution Width 14.1 Platelet Count 216 Mean Platelet Volume 7.7 Neutrophils (%) (Auto) 81.0 H Lymphocytes (%) (Auto) 8.5 L Monocytes (%) (Auto) 9.5 Eosinophils (%) (Auto) 0.6 Basophils (%) (Auto) 0.4 Neutrophils # (Auto) 10.9 H Lymphocytes # (Auto) 1.1 Monocytes # (Auto) 1.3 H Eosinophils # (Auto) 0.1 Basophils # (Auto) 0.1 CBC Comment Sodium Level 126 L 130 L Potassium Level 5.1 4.8 Chloride Level 96 L 99 Carbon Dioxide Level 21.8 L 22.9 L Anion Gap 8 8 Blood Urea Nitrogen 45 H 40 H Creatinine 1.93 H 1.73 H Estimated GFR/1.73 m2 36 41 BUN/Creatinine Ratio 23.3 H 23.1 H Glucose Level 672 *H 496 *H Calcium Level 9.5 9.2 Total Bilirubin 0.3 Aspartate Amino Transf (AST/SGOT) 15 Alanine Aminotransferase (ALT/SGPT) 39 Alkaline Phosphatase 205 H Total Protein 7.6 Albumin 1.9 L 1.8 L Globulin 5.7 H Albumin/Globulin Ratio 0.3 L Lipase 47 Chemistry Comments Urine Specimen Description Voided Urine Color Yellow Urine Clarity Clear Urine pH 5.5 Urine Specific [place] <=1.005 Urine Protein Negative Urine Glucose (UA) >=1000 H Urine Ketones Negative Urine Occult Blood Trace-intact Urine Nitrite Negative Urine Bilirubin Negative Urine Urobilinogen 0.2 Urine Leukocyte Esterase Negative Urine RBC None seen Urine WBC None seen Urine Squamous Epithelial Cells None seen Urine Bacteria None seen Urine Culture Indicated Not ind Volume Urine Centrifuged 10 ml Urine Comment Glucometer 507 *H Medical Decision Making Findings Facility Status: ED Holds, [facility] process The plan was discussed with the patient, who demonstrates clear understanding of the plan and is in agreement with the plan unless otherwise noted in the chart. All questions have been answered, all concerns were addressed unless otherwise documented. I was available throughout their ED stay for frequent reassessment and questions. Differential Diagnoses (considered and possible or likely): [Hypoglycemia, hyperglycemia, DKA, HHS, dehydration, electrolyte derangement] ??Differential Diagnoses (considered and unlikely, not requiring evaluation currently): [Not likely to represent acute intra-abdominal process, ACS, pneumonia, circulatory or respiratory complications] MDM Data Please see [facility] for the following: Independent Historians and external Records Review. Historian: [Patient] Independent Historians: ?[Record review] Medication Management: [Reviewed medication list] Social History and determinants: [Reviewed] Please see the body of the note for the following: Any independent interpretations of ECG, imaging studies. All vitals signs/haemodynamics, ordered tests were independently reviewed and interpreted by myself. Nursing triage complaint and vitals reviewed, additional nursing notes were reviewed as available and I agree unless otherwise noted or documented in contradiction in the chart Vital Signs: Independently reviewed Labs: Independently interpreted Imaging: Independently interpreted Old Medical Records: Independently reviewed, see [facility] for relevant summary and information Pulse Oximetry: [95%] interpreted as [normal on room air] by me [Group Director: [Regular Rate, Regular rhythm, no ectopy, NSR] reviewed and interpreted by me] Additionally notably showing: [Hemodynamically patient is notable for tachycardia which improved his foods. Laboratory workup shows minimal leukocytosis likely reactive. Chemistry notable for pseudohyponatremia, TAYLOR versus CKD, hyperglycemia without DKA] Tests considered but not ordered include: [Imaging has been considerably does not appear to be necessary at this time] Social Determinants of Health Impact: Patient was evaluated in [facility] [place] to healthcare due to below par ratio of patient to medical providers. [] Comorbid Conditions Impacting Present Evaluation and Care/Treatment: [Poorly treated diabetes mellitus] Management Discussions with other Healthcare Providers: [] Treatment and Disposition Medication Management (Given or considered): [Fluid bolus and insulin]. See EMR for details Consideration for Hospitalization/Escalation/Deescalation of Care: Admission for observation has been considered, [however the patient is able to tolerate p.o., their symptoms are controlled, they are able to rely on oral medications, and their chief complaint/diagnosis can be managed on outpatient basis.] ?ED Course:?[After fluids and insulin his glucose is now any detectable range. There is still no evidence of DKA. Kidney functions improving.] ?Shared decision making:?[Patient is hemodynamically stable for discharge home with follow with their primary care provider. [ ] Specific and cautious return precautions provided and discussed with full understanding. Any incidental findings were also discussed and follow up recommendations given. [] All questions answered. Patient/family were able to verbalize back return precautions. Patient/family agree to plan. Copies of imaging and laboratory studies were provided.] Code status:?FULL Please see the full Electronic Medical Record for full details of nursing documentation, medications list, other records of complete past medical history and conditions, vital signs, laboratory studies, and any radiologic study interpretations by radiologists. Portions of this note were completed using [employer] dictation software and as a result there may exist minor errors in spelling. I have reviewed elements of past family and social history and agree as included in note. Departure Disposition: 01 HOME / SELF CARE / HOMELESS Impression: Primary Impression: Acute hyperglycemia Additional Impressions: Acute kidney injury Dehydration Pseudohyponatremia Condition: Improved Discharge Instructions: Hyperglycemia, Glucose Monitoring Additional Instructions: You must follow-up with the primary care provider and adjust your diabetic treatment regimen. Your current regimen is ineffective. Referrals: NO PRIMARY CARE PROVIDER (PCP) Education Educated: Patient Educated regarding: diagnosis, treatment, prognosis, need for follow up Signature Scribe Signature: No scribe Attestation: This note accurately reflects clinical decisions, work performed by myself, Michael Yañez, MICHAEL QUINONES DO August 26, 2024 00:46
[2024-08-26 02:28] LABS: ALBUMIN 1.8 G/DL (3.4-5.0); ANION GAP 8 (8-16); BLOOD UREA NITROGEN 40 MG/DL (7-18); BUN/CREATININE RATIO 23.1 (10.0-20.0); CALCIUM 9.2 MG/DL (8.5-10.1); CHLORIDE 99 MMOL/L (99-107); CREATININE 1.73 MG/DL (0.60-1.10); POTASSIUM 4.8 MMOL/L (3.5-5.1); SODIUM 130 MMOL/L (135-145); TOTAL CARBON DIOXIDE 22.9 MMOL/L (24-32); eCRCL 50 ML/MIN; eGFR 41 ML/MIN
[2024-08-26 02:56] VITALS: BP 167/96; PULSE 102; O2SAT 94
[2024-08-26 02:58] VITALS: RESP 15
[2024-08-26 03:00] LABS: GLUCOSE 496 MG/DL (70-104)
== END 2024-08-26 03:27 | disposition home or self-care (01) ==
LOC: ER 22:04
DX: E11.65 Type 2 diabetes mellitus with hyperglycemia (principal); E86.0 Dehydration; N17.9 Acute kidney failure, unspecified; Z79.899 Other long term (current) drug therapy
CPT/HCPCS: 36415; 80048; 80053; 81001; 82948; 83690; 85025; 96360; 96372; 99283; J1815; J7030

== ENCOUNTER 2024-08-31 13:38 | Inpatient (IN) | payer MEDICAID ==
[~2024-08-31] VITALS: Ht 182.9 cm; Wt 110.5 kg
[2024-08-31] VITALS (15 sets, daily range): BP systolic 125–156; BP diastolic 71–105; PULSE 116–121; RESP 20–38; TEMP 98.3; O2SAT 80–98
[~2024-08-31 13:38] MED LIST changes: +LIDO-52 TOP; -LIDO700A32 TOP
[2024-08-31] MEDS: normal saline 1000ml 1,000 ML IV ONE ×2 (14:22)
[2024-08-31 14:31] LABS: BASOPHILS # (AUTO) 0.1 X10'3 (0-0.2); BASOPHILS % (AUTO) 0.4 % (0-1); EOSINOPHILS # (AUTO) 0.1 X10'3 (0-0.9); EOSINOPHILS % (AUTO) 0.5 % (0-6); HEMATOCRIT 50.3 % (42.0-52.0); HEMOGLOBIN 16.5 g/dl (14.0-17.9); LYMPHOCYTES # (AUTO) 1.2 X10'3 (1.1-4.8); LYMPHOCYTES % (AUTO) 7.4 % (21-51); MEAN CORPUSCULAR HEMOGLOBIN 28.2 PG (27.0-31.0); MEAN CORPUSCULAR HGB CONC 32.7 g/dL (33.0-36.5); MEAN CORPUSCULAR VOLUME 86.2 FL (78-98); MEAN PLATELET VOLUME 8.5 FL (7.4-10.4); MONOCYTES # (AUTO) 1.3 X10'3 (0-0.9); MONOCYTES % (AUTO) 7.6 % (2-12); NEUTROPHILS # (AUTO) 14.1 X10'3 (1.8-7.7); NEUTROPHILS % (AUTO) 84.1 % (42-75); PLATELET COUNT 244 X10'3 (140-440); RED BLOOD COUNT 5.83 X10'6 (4.70-6.10); WHITE BLOOD COUNT 16.7 X10'3 (4.5-11.0)
[2024-08-31 14:42] LABS: ANION GAP 15 (8-16); BLOOD UREA NITROGEN 49 MG/DL (7-18); BUN/CREATININE RATIO 22.6 (10.0-20.0); CALCIUM 9.8 MG/DL (8.5-10.1); CHLORIDE 97 MMOL/L (99-107); CREATININE 2.17 MG/DL (0.60-1.10); POTASSIUM 5.6 MMOL/L (3.5-5.1); SODIUM 134 MMOL/L (135-145); TOTAL CARBON DIOXIDE 21.9 MMOL/L (24-32); eGFR 31 ML/MIN
--- NOTE | 2024-08-31 14:43 | RADIOLOGY REPORT ---
CHEST RADIOGRAPH Indication: CP Technique: Single frontal view of the chest was obtained Comparison: CHEST,SINGLE VIEW on DOS: 03/15/20 FINDINGS: Lines and Tubes: None Lungs: No focal consolidation. Pleura: No effusion. No pneumothorax. Cardiomediastinal contours: Unremarkable Bones: No acute osseous abnormality. IMPRESSION: No acute cardiopulmonary disease.
[2024-08-31 14:52] LABS: PRO BRAIN NATRIURETIC PEPTIDE 4130 PG/ML (0-125)
[2024-08-31 14:58] LABS: GLUCOSE 650 MG/DL (70-104)
[2024-08-31] MEDS: Insulin Reg/NS 100units/100mL 100 ML IV PRN (15:23)
[2024-08-31] MEDS: normal saline 1000ML IV soln IV ONE (15:54)
--- NOTE | 2024-08-31 15:59 | ELECTROCARDIOGRAPH REPORT ---
[facility] Test Date: 2024-08-31 Test Time: 13:42:34 Pat Name: RIRI CLAYTON Department: EMERGENCY ROOM Room: Gender: M Shipping Receiving Manager: BERNA : 1965 Requested By: CHLOÉ MCNEILL Order Number: [id number] Reading MD: Dr. Chloé Mcneill Measurements Intervals [place] Rate: 118 P: 59 MI: 126 QRS: 36 QRSD: 87 T: 40 QT: 324 QTc: 455 Interpretive Statements Sinus tachycardia Low voltage, precordial leads Baseline wander in lead(s) V1 Electronically Signed On 08-31-2024 17:10:[address] Chloé Mcneill Please click the below link to view image of tracing.
[2024-08-31 16:34] LABS: ALANINE AMINOTRANSFERASE 26 U/L (12-78); ALBUMIN 1.7 G/DL (3.4-5.0); ALBUMIN/GLOBULIN RATIO 0.3 (1.1-1.5); ALKALINE PHOSPHATASE 158 IU/L (46-116); ASPARTATE AMINO TRANSFERASE 19 U/L (10-37); BILIRUBIN,DIRECT 0.1 MG/DL (0-0.3); BILIRUBIN,TOTAL 0.4 MG/DL (0.1-1.0); TOTAL PROTEIN 6.8 G/DL (6.4-8.2)
[2024-08-31 16:42] LABS: ABG BASE EXCESS -8.1 mmol/L (-2.0-3.0); ABG HCO3 15.4 mmol/L (21.0-28.0); ABG OXYGEN SATURATION 94.5 % (94.0-98.0); ABG PCO2 (T) 26.8 mmHg (35.0-48.0); ABG PH (T) 7.376 (7.350-7.450); ALLEN'S TEST POSITIVE; FCOHb 0.8 % (0.5-1.5); FHHb 5.5 % (0.0-5.0); FLOW 4 L/min; FMetHb 0.1 % (0.0-1.5); FO2Hb 93.6 % (94.0-98.0); MODE NASAL CANNULA; PATIENT TEMPERATURE 36.4; TOTAL HEMOGLOBIN 15.3 G/dl (13.5-17.5)
--- NOTE | 2024-08-31 16:55 | Physician Documentation ---
History of Present Illness ~ Chief Complaint: Shortness of Breath Stated Complaint: SOB Time Seen by MD: 14:14 OK to notify your PCP?: Yes Primary Medical Doctor: [email or web address] Source: patient, RN/, RN notes reviewed, old records Mode of Arrival: POV Exam Limitations: no limitations HPI 59 year old male seen in bed 16 with history of diabetes presents to the emergency department for complaints of shortness of breath. He states that two weeks ago he began having abdominal pain and was diagnosed with a kidney stone. He was prescribed antibiotics of which he finished three days ago and he has an appointment to follow up with Dr. Felton. He states that today he is feeling short of breath and abdominal pain in his lower left quadrant. He states that he has been feeling nauseous but denies any vomiting. Patient denies any other associated symptoms at this time. Patient denies any other alleviating or exacerbating factors. Medication Reconciliation Allergies: Coded Allergies: No Known Allergies (Unverified , 08/25/24) Scheduled Empagliflozin (Jardiance), 1 TAB QAM, (Reported) Insulin Glargine,Hum.rec.anlog (Lantus), 30 UNIT SQ HS Lidocaine (Lidoderm), 1 PATCH TOP DAILY Lisinopril (Lisinopril), 10 MG PO DAILY Methocarbamol (Methocarbamol), 1 TAB PO Q8H Metoprolol Tartrate (Metoprolol Tartrate), 1 TAB PO Q12H, (Reported) Ondansetron 8mg ODT (Ondansetron Odt), 1 TAB PO Q6H Scheduled PRN Hydrocodone Bit/Acetaminophen 5/325 MG ([place] 5/325 MG), 1-2 TAB PO Q4-6 hours PRN for pain Past Medical History Past Medical History: Sleep Apnea, UTI, Diabetes Past Surgical History: no surgical history Smoking Status: Never smoker Alcohol Use: None Drug Use: none Lives with: Alone Lives In: Home Review of Systems All Other Systems at this time: Reviewed and Negative ROS As stated above in the HPI, otherwise all systems are reviewed and negative. Physical Exam Vital Signs: RN Vital Signs have been reviewed: Yes, Temperature: 97.8, Source: Oral, Heart Rate: 114, Respiratory Rate: 29, BP: 163/102, Pulse Oximetry: 99, Weight: 119.090 Oxygen Flow Rate: 4.0 Pulse Oximetry Reflects: adequate oxygenation Physical Exam General: Sheldon is ill appearing. Sheldon is in moderate distress. The patient is well developed, well nourished, nontoxic appearing. Skin: [place], warm and dry with no rashes. HEENT: Head was normocephalic and atraumatic. Eyes - pupils equal, round, khurram ctive to light and accommodation. Extraocular movements were intact. Conjunctivae were nonicteric. Ears - bilateral tympanic membranes were normal. The mouth and oropharynx were clear with moist mucous membranes. There were no pharyngeal exudates or erythema. Neck: Supple and nontender. There was no jugular venous distention, lymphadenopathy, thyromegaly or masses. Chest: Clear to auscultation bilaterally without wheezes, rales or rhonchi. No accessory muscle use. No dullness to percussion. Heart: Rapid heart rate. S1, S2. No murmurs. Palpation of the chest wall was normal. No rubs or thrills. Abdomen: Soft, nontender and nondistended. Positive bowel sounds. No guarding or rebound. No hepatosplenomegaly or palpable masses. Extremities: No cyanosis, clubbing or edema. The patient moves all extremities. Pulses were equal and symmetric. Neurologic: Cranial nerves II-XII were intact. Sensation was intact to light touch throughout. Motor strength was 5/5 in all four extremities. Deep tendon reflexes were intact in both upper and lower extremities. Psychologic: The patient was oriented to person, place and time. The patient demonstrated appropriate judgement and insight. Progress Progress Note 1800: The case was discussed with the resident who was informed on the patients case and kindly agreed to admission. 1830: The case was discussed with Dr. Villagran who was informed on the patients case and kindly agreed to operate on the patient. Results/Orders Results/Orders Orders - CHLOÉ MCNEILL MD Chest,Single View (08/31/24 14:07) Monitor (08/31/24 14:07) Saline Lock (08/31/24 14:07) Oxygen (08/31/24 14:07) Electrocardiogram (08/31/24 14:07) Culture Blood (08/31/24 15:43) Abg (Arterial Blood Gas) (08/31/24 ) Ct Abdomen Pelvis (08/31/24 16:11) Page Hospitalist (08/31/24 17:40) Fill Out Med Reconciliation (08/31/24 17:40) General Nursing Order (08/31/24 17:30) Md To Janet (08/31/24 18:08) Completed Orders - CHLOÉ MCNEILL MD Chest,Single View (08/31/24 14:07) Cbc/Diff (08/31/24 14:07) BMP (08/31/24 14:07) PBNP (08/31/24 14:07) Electrocardiogram (08/31/24 14:07) Hs Troponin I W Calculations (08/31/24 14:07) Hs Troponin I W Calculations (08/31/24 16:07) Hs Troponin I W Calculations (08/31/24 17:07) Insulin Reg/Ns 100units/100ml (Myxredlin (08/31/24 14:15) Normal Saline 1000ml (Sodium Chloride 10 (08/31/24 14:20) Normal Saline 1000ml (Sodium Chloride 10 (08/31/24 14:20) Liver Panel (08/31/24 15:42) Normal Saline 1000ml (Sodium Chloride 10 (08/31/24 15:45) Procalcitonin (08/31/24 15:43) Lacticsepsis (08/31/24 15:43) Ct Abdomen Pelvis (08/31/24 16:11) Lactic,2hr (08/31/24 17:24) Hgb A1c (08/31/24 13:43) Vital Signs 08/31/24 08/31/24 08/31/24 08/31/24 13:41 14:08 14:11 16:00 Temp 97.8 97.8 Pulse 120 115 114 Resp 34 44 29 B/P (MAP) 146/104 160/96 (117) 163/102 (122) Pulse Ox 91 95 93 O2 Flow Rate 2.0 2.0 08/31/24 08/31/24 16:03 17:19 Pulse 110 Resp 28 B/P (MAP) 163/102 (122) 149/93 (111) Pulse Ox 99 94 O2 Flow Rate 4.0 2.0 Laboratory Tests Test 08/31/24 13:43 08/31/24 13:46 08/31/24 15:56 08/31/24 16:23 White Blood Count 16.7 H Red Blood Count 5.83 Hemoglobin 16.5 Hematocrit 50.3 Mean Corpuscular Volume 86.2 Mean Corpuscular Hemoglobin 28.2 Mean Corpuscular Hemoglobin Concent 32.7 L Red Cell Distribution Width 14.0 Platelet Count 244 Mean Platelet Volume 8.5 Neutrophils (%) (Auto) 84.1 H Lymphocytes (%) (Auto) 7.4 L Monocytes (%) (Auto) 7.6 Eosinophils (%) (Auto) 0.5 Basophils (%) (Auto) 0.4 Neutrophils # (Auto) 14.1 H Lymphocytes # (Auto) 1.2 Monocytes # (Auto) 1.3 H Eosinophils # (Auto) 0.1 Basophils # (Auto) 0.1 CBC Comment Sodium Level 134 L Potassium Level 5.6 H Chloride Level 97 L Carbon Dioxide Level 21.9 L Anion Gap 15 Blood Urea Nitrogen 49 H Creatinine 2.17 H Estimated GFR/1.73 m2 31 BUN/Creatinine Ratio 22.6 H Glucose Level 650 *H Hemoglobin A1c > 12.0 H Calcium Level 9.8 Troponin I High Sensitivity 37 37 Pro-B-Type Natriuretic Peptide 4130 H Albumin 2.0 L 1.7 L Chemistry Comments Glucometer > 600 *H 452 *H Lactic Acid Level 2.4 H Total Bilirubin 0.4 Direct Bilirubin 0.1 Aspartate Amino Transf (AST/SGOT) 19 Alanine Aminotransferase (ALT/SGPT) 26 Alkaline Phosphatase 158 H Troponin I High Sens Percent Delta 0 Troponin I Hi Sens Absolute Change 0 Total Protein 6.8 Globulin 5.1 H Albumin/Globulin Ratio 0.3 L Procalcitonin 1.07 H Test 08/31/24 16:37 08/31/24 17:01 08/31/24 17:37 Blood Gas Specimen Type Arterial Blood Gas Puncture Site Rr O2 Saturation 94.5 Arterial Blood pH (Temp corrected) 7.376 Arterial Blood pCO2 (Temp correct) 26.8 L Arterial Blood pO2 (Temp corrected) 72.0 L Arterial Blood HCO3 15.4 L Arterial Blood Base Excess -8.1 L Arterial Blood Oxyhemoglobin 93.6 L Arterial Blood Carboxyhemoglobin 0.8 Arterial Blood Methemoglobin 0.1 Arterial Blood Deoxyhemoglobin 5.5 H Manuel Test Positive Blood Gas Hemoglobin 15.3 Blood Gas Temperature 36.4 Blood Gas Liter Flow 4 Blood Gas Modality Nasal cannula FiO2 36.0 Lactic Acid Level 2.0 Troponin I High Sensitivity 38 Troponin I High Sens Percent Delta 2 Troponin I Hi Sens Absolute Change 1 Glucometer 441 *H Microbiology Date/Time Source Procedure Growth Status 08/31/24 17:01 Blood Arm Left Blood Culture - Preliminary NO GROWTH AFTER 3 DAYS Resulted Re-Evaluation Re-evaluation : Re-Evaluation: Improved Progress Patient was seen and examined. Patient is given reassurance. Patient was found to have a UTI. Patient had TNTC RBCs. 20-30 WBCs. CBC showed a leukocytosis of 16.7 WBC and 84 neutrophils with a left shift sed rate elevated 67. ABG was obtained showed some mild acidosis but basically reassuring with a pH 7.37 pCO2 low at 26 as well as PO2 low at 72. Base excess 15.4. Chemistry showed a glucose of 650. Sodium 134 potassium elevated at 5.6 CO2 shows metabolic acidosis of 21.9 BUN 49 creatinine 2.17 which is acute renal failure so this patient. Patient's hemoglobin A1c is greater than 12. Troponins are negative and lactic acid is elevated 2.4. Patient does take med formalin when she was last prescribed on 08/2023 so may not be on that anymore however may be contributing to the mild lactic acidosis. Patient received L boluses for possible sepsis. CT scan of the abdomen pelvis was obtained. Procalcitonin was added and was elevated at 1.07. Cat scan of the abdomen shows severe left hydronephrosis perinephric stranding edema as well as a 9 mm calculus. Urology was then emergently consulted for emergency surgery. IV antibiotics were given by the resident Aniyah. Patient was scheduled for emergent surgery after I discussed the case with Urology. This patient is quite ill. Continuous hospital monitor interpretation shows sinus tachycardia heart rate 120s, abnormal, my interpretation. Pulse oximetry monitor interpretation is low at 91% room air. Abnormal my interpretation. EKG/XRAY/CT/US/VASC/MRI EKG : Additional Comment [facility] Test Date: 2024-08-31 Test Time: 13:42:34 Pat Name: RIRI CLAYTON Department: EMERGENCY ROOM Room: Gender: M Authors Motivational: BERNA : 1965 Requested By: CHLOÉ MCNEILL Order Number: [id number] Alexei MD: Dr. Chloé Mcneill Measurements Intervals [place] Rate: 118 P: 59 OR: 126 QRS: 36 QRSD: 87 T: 40 QT: 324 QTc: 455 Interpretive Statements Sinus tachycardia Low voltage, precordial leads Baseline wander in lead(s) V1 Electronically Signed On 08-31-2024 17:10:[address] Chloé Mcneill Please click the below link to view image of tracing. EKG Date and Time:08/31/24 1342 Electronically Signed by: CHLOÉ MCNEILL MD Date and Time: 08/31/24 1710 Chest X-Ray : Additional Comments CHEST RADIOGRAPH Indication: CP Technique: Single frontal view of the chest was obtained Comparison: CHEST,SINGLE VIEW on DOS: 03/15/20 FINDINGS: Lines and Tubes: None Lungs: No focal consolidation. Pleura: No effusion. No pneumothorax. Cardiomediastinal contours: Unremarkable Bones: No acute osseous abnormality. IMPRESSION: No acute cardiopulmonary disease. Electronically Signed by:MARYELLEN HASTINGS MD Date & Time: 08/31/[address] : Impression Indication: ABD PAIN Technique: CT axial images of the abdomen and pelvis are obtained with intravenous contrast. Coronal and sagittal reformats were obtained. Radiation Dose Information: CTDI volume is 27 mGy. Dose-length product is 1474 mGy*cm Comparison: CT CT ABDOMEN PELVIS on DOS: 08/15/24 FINDINGS: Lung bases demonstrate atelectasis. Adrenal glands, spleen, pancreas unremarkable in shape. Cholelithiasis. Liver unremarkable in shape. Right kidney demonstrates mild right hydroureteronephrosis. The left kidney demonstrates severe left hydroureteronephrosis with extensive left perinephric edema and stranding which has significantly increased since the previous examination. There is a proximal left ureteral calculus measuring 9 mm in size grossly unchanged in location compared to the previous examination. Stomach is partially distended. Small bowel loops are normal in caliber. Large volume stool in the colon. Normal appendix. Abdominal aortic atherosclerotic disease. Numerous retroperitoneal lymph nodes up to 1 cm. Bladder distended. No free pelvic fluid. Bilateral fat containing inguinal hernias, [id number]-right. No inguinal lymphadenopathy. No aggressive osseous process. Moderate to advanced lumbar degenerative disc disease most pronounced at L4-5 and L5-S1. IMPRESSION: 1. Severe left hydroureteronephrosis with extensive left perinephric edema and stranding, significantly worsened since previous examination. This is secondary to a proximal left ureteral calculus measuring 9 mm, grossly unchanged in position. Recommend urology consultation for further management. 2. Extensive left perinephric edema and stranding likely represents sequela of urinary tract infection/pyelonephritis /calyceal rupture. 3. Mild right hydroureteronephrosis. No obstructing right calculus identified 4. Retroperitoneal lymphadenopathy which is likely related to the underlying left renal process. 5. Other findings as described Electronically Signed by:JACQUELINE WYNNE MD Date & Time: 08/31/241654 Medical Decision Making Additional info obtained from: old records Differential Dx:Considerations: Include: asthma, bronchitis, CHF, COPD, pneumonia, pneumonitis, pulmonary embolism, respiratory distress, sinusitis, upper resp. infection, other Departure Time of Disposition: 18:11 Disposition: ADMITTED INPATIENT Admitted to Inpatient Unit: yes, to hospitalist, other (Urology) Admission Level of Care: PCU with Tele Impression: Primary Impression: DKA (diabetic ketoacidosis) Qualified Codes: E10.10 - Type 1 diabetes mellitus with ketoacidosis without coma Additional Impressions: Sepsis Qualified Codes: A41.9 - Sepsis, unspecified organism; R65.20 - Severe sepsis without septic shock; N17.9 - Acute kidney failure, unspecified Obstructive uropathy Condition: Guarded Referrals: NO PRIMARY CARE PROVIDER (PCP) Education Educated: Patient Educated regarding: diagnosis, need for follow up, other Critical Care Note Total Time (mins): 90 Critical Care Note The very real possibility of a deterioration of this patient's condition required the highest level of my preparedness for sudden, emergent intervention. I provided critical care services, which included medication orders, frequent reevaluations of the patient's condition and response to treatment, ordering and reviewing test results, and discussing the case with various consultants. Excludes time spent performing separately billable procedures. The critical care time associated with the care of the patient was 90 minutes. Signature Scribe Signature: Scribed for Chloé Mcneill MD by Denver Almaraz . 08/31/24 16:57 Attestation: The note accurately reflects work and decisions made by me.Chloé Mcneill MD 08/31/24 16:55 CHLOÉ MCNEILL MD Aug 31, 2024 16:55 [place] Aug 31, 2024 16:57
--- NOTE | 2024-08-31 16:58 | RADIOLOGY REPORT ---
Indication: ABD PAIN Technique: CT axial images of the abdomen and pelvis are obtained with intravenous contrast. Coronal and sagittal reformats were obtained. Radiation Dose Information: CTDI volume is 27 mGy. Dose-length product is 1474 mGy*cm Comparison: CT CT ABDOMEN PELVIS on DOS: 08/15/24 FINDINGS: Lung bases demonstrate atelectasis. Adrenal glands, spleen, pancreas unremarkable in shape. Cholelithiasis. Liver unremarkable in shape. Right kidney demonstrates mild right hydroureteronephrosis. The left kidney demonstrates severe left hydroureteronephrosis with extensive left perinephric edema and stranding which has significantly in creased since the previous examination. There is a proximal left ureteral calculus measuring 9 mm in size grossly unchanged in location compared to the previous examination. Stomach is partially distended. Small bowel loops are normal in caliber. Large volume stool in the colon. Normal appendix. Abdominal aortic atherosclerotic disease. Numerous retroperitoneal lymph nodes up to 1 cm. Bladder d istended. No free pelvic fluid. Bilateral fat containing inguinal hernias, [id number]-sxfx-right. N o inguinal lymphadenopathy. No aggressive osseous process. Moderate to advanced lumbar degenerative disc disease most pronounced at L4-5 and L5-S1. IMPRESSION: 1. Severe left hydroureteronephrosis with extensive left perinephric edema and stranding, significant ly worsened since previous examination. This is secondary to a proximal left ureteral calculus measu ring 9 mm, grossly unchanged in position. Recommend urology consultation for further management. 2. Extensive left perinephric edema and stranding likely represents sequela of urinary tract infectio n/pyelonephritis /calyceal rupture. 3. Mild right hydroureteronephrosis. No obstructing right calculus identified 4. Retroperitoneal lymphadenopathy which is likely related to the underlying left renal process. 5. Other findings as described
[2024-08-31] MEDS ORDERED: magnesium sulf-water 4G/100mL 100 ML IV PRN (18:35)
[2024-08-31] MEDS ORDERED: magnesium Cl slow-release 64mg tablet PO PRN (18:35)
[2024-08-31] MEDS ORDERED: potassium Cl 20 mEq SR tablet PO PRN ×2 (18:35)
[2024-08-31] MEDS ORDERED: normal saline 1000ml 1,000 ML IV SCH (18:35)
[2024-08-31] MEDS ORDERED: acetaminophen 325mg tablet PO PRN (18:35)
[2024-08-31] MEDS ORDERED: mag hydrox/Alum hydrox/simeth 30ml oral suspension PO PRN (18:35)
[2024-08-31] MEDS ORDERED: ondansetron/PF 4mg/2ml inj IV PRN ×2 (18:35→19:15)
[2024-08-31] MEDS ORDERED: magnesium sulf-water 2g/50mL 50 ML IV PRN ×2 (18:35→18:45)
[2024-08-31] MEDS ORDERED: magnesium hydroxide 30ml (MOM) UD suspension PO PRN (18:35)
[2024-08-31] MEDS ORDERED: potassium Cl 40MEQ/1/2NS 520ml 520 ML IV PRN ×2 (18:35→18:45)
[2024-08-31] MEDS ORDERED: potassium Cl 40MEQ/270ML bag 270 ML IV PRN (18:45)
[2024-08-31] MEDS: ringers solution, lacted 1,000 ML IV SCH ×2 (18:45→19:15)
[2024-08-31] MEDS ORDERED: dextrose 50%-water 50ml dispensing syringe IV PRN (18:45)
[2024-08-31] MEDS ORDERED: sodium phosphate inj. 15 MMOL in dextrose 5%-water 250 ML IV PRN (18:45)
--- NOTE | 2024-08-31 18:49 | HISTORY AND PHYSICAL-Residence ---
History & Physical Providers to Resident Creating Document: PAULA GARRISON ELIZABETH, RES ~ History of Present Illness Primary Medical Doctor: Chun Rich. Urologist: Dr. Felton. Reason for Admit\Complaint: Abdominal pain History of Present Illness Chun Watson Hilario. Urologist: Dr. Felton. 59-year-old male patient with past medical history of diabetes mellitus, hypertension came to the hospital with chief complaint of abdominal pain. The patient reports that his abdominal pain started three weeks ago reason for which he decided to go to [facility] where he was diagnosed with a kidney stone, treated with antibiotics and pain medication, then discharged home. The patient mentioned that his symptoms improved with the antibiotics and pain medication but for the last five days he has been experiencing left flank pain scaled 5/10 in intensity, radiation to the left iliac fossa, described as a sharp type pain, associated to these symptom the patient also endorses subjective on and off fever, chills, anxiety which he associates to his current situation in which his father has been hospitalized. The patient states that he has been passing a lot. The patient also mentioned that he has been having increased urinary frequency, nocturia which kept him awake during the night. The patient currently denies any chest pain, shortness of breath, palpitations, intestinal symptoms. Allergies: Coded Allergies: No Known Allergies (Unverified , 08/25/24) Home Medications Home Medications Active Ondansetron Odt (Ondansetron HCl) 8 Mg Tab.rapdis 1 Tab PO Q6H 3 Days [place] 5/325 MG (Acetaminophen/Hydrocodone Bitart) 5 Mg/325 Mg Tablet 1-2 Tab PO Q4-6 HOURS PRN Lidoderm (Lidocaine) 5 % Adh..patch 1 Patch TOP DAILY 30 Days may wear up to 12 hours Methocarbamol 750 Mg Tablet 1 Tab PO Q8H 30 Days Lantus (Insulin Glargine,Hum.rec.anlog) 100 Unit/1 Ml Vial 30 Unit SQ HS Lisinopril 10 Mg Tablet 10 Mg PO DAILY Reported Jardiance (Empagliflozin) 25 Mg Tablet 1 Tab QAM Metoprolol Tartrate 50 Mg Tablet 1 Tab PO Q12H Past Medical History Past Medical History Diabetes mellitus type 2, taking Jardiance 25 mg daily, he was taking metformin 1000 mg daily which he stopped two weeks ago by himself stating that he was feeling weird. Hypertension taking metoprolol and lisinopril. 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 HEENT: Conjunctive are pink, sclerae clear, no icterus, pupil is equal in both sides, reactive to light, no ear discharge, no pharyngeal erythema or an edema. Neck: Supple, no JVD, no lymphadenopathy and thyromegaly. Chest: Equal air entry on both lungs, no additional sounds no rhonchi no wheezing at the moment. Cardiovascular: S1-S2 regular sinus rhythm and, regular rate, no gallops, no rubs, no murmurs Abdomen: No visible peristalsis, Bowel sounds present on auscultation, soft, tenderness in the left lower abdomen with superficial palpation, no guarding, no rigidity Extremities: No obvious deformities, no pitting edema bilaterally, capillary refill intact, peripheral pulsations are intact on both sides, presence of dermatitis stasis changes in bilateral lower extremities. Central Nervous System: No focal neurological deficits, no motor or sensory weakness in all 4 extremities, could move all 4 extremities, 2+ deep tendon reflexes, negative Babinski. Musculoskeletal: No joint swelling, deformities, inflammations, and no scoliosis, fist percussion positive in the left costovertebral angle. Skin: Warm and dry. presence of dermatitis stasis changes in bilateral lower extremities. Diagnostic Data Last Recorded Lab Results: 08/31/24 1343 08/31/24 1343 Advance Care Planning Advanced Care plannin - 30 Minutes (I spent a total of 17 minutes on reviewing various resuscitative measures/ACP with the patient at the time of admission. The patient has decided on a full code status.) Additional Plan Assessment and plan: 59-year-old male patient came to the hospital with chief complaint of left flank pain. Left flank pain: Left kidney stone: Left hydroureteronephrosis: Sepsis likely secondary to pyelonephritis: The patient came to the hospital with chief complaint of left flank pain. CT scan of the abdomen and pelvis: Severe left hydroureteronephrosis with extensive left perinephric edema and stranding, significantly worsened since previous examination. This is secondary to a proximal left ureteral calculus measuring 9 mm, grossly unchanged in position. Recommend urology consultation for further management. Extensive left perinephric edema and stranding likely represents sequela of urinary tract infection/pyelonephritis /calyceal rupture. Mild right hydroureteronephrosis. No obstructing right calculus identified. Retroperitoneal lymphadenopathy which is likely related to the underlying left renal process. Other findings as described. Urology consulted by ER physician, Dr. Mcneill. Awaiting recommendations. Pain control with morphine and [place]. Follow-up urinalysis. Follow-up at cultures. Procalcitonin elevated, elevated leukocytes, WBC 16.7. Zosyn IV t.i.d. Culturelle [id number] mmu b.i.d. NPO for possible procedure. Diabetic ketoacidosis: Glucose levels: 650, elevated anion gap metabolic acidosis, follow-up urinalysis for ketone bodies. Diabetic ketoacidosis protocol started. On ringer lactate at 250 mL/hour. Acute kidney injury likely secondary to renal tubular stasis: Creatinine 2.17, GFR 31, BUN/creatinine ratio 22.6. Follow-up urine lytes. Ratio lactate at 250 mL/hour. Hypertension: We will continue blood pressure medication after med reconciliation. Code status: Full code DVT prophylaxis: SCDs Analgesia/sedation: Morphine and [place] Line/tube: PIV GI prophylaxis: None Nutrition: NPO PT: Yes Prognosis: Guarded Disposition: The patient will be admitted to PCU with telemetry. Paula Hussein Internal Medicine Resident [facility] Date of Service: Aug 31, 2024 Billing Provider: CUAUHTEMOC GORDON MD Common Visit Codes: 21251-NEXIJWH INP/OBS CARE (HIGH) Secondary Visit Codes: 55034-UCRAGHSC CARE PLAN 30 MINUTES PAULA GARRISON, RES Aug 31, 2024 18:49 CUAUHTEMOC GORDON MD Sep 01, 2024 22:24
[2024-08-31 18:57] LABS: HEMOGLOBIN A1C > 12.0 % (4.5-6.2)
[2024-08-31] MEDS: docusate sod 100mg capsule PO SCH (19:09)
[2024-08-31 19:10] LABS: OSMOLALITY 329 MOSM/K (280-300)
[2024-08-31] MEDS ORDERED: fentaNYL/PF 50MCG/1 ML 2ML syringe IV PRN ×2 (19:15)
[2024-08-31] MEDS ORDERED: labetalol 20mg/4ml (5mg/ml) syringe IV PRN (19:15)
[2024-08-31] MEDS ORDERED: hydrALAZINE 20mg/ml inj. IV PRN (19:15)
[2024-08-31] MEDS ORDERED: morphine 2 MG/ML inj. syringe IV PRN (19:15)
[2024-08-31] MEDS ORDERED: morphine 4 MG/ML inj SYRINge IV PRN (19:15)
[2024-08-31] MEDS ORDERED: iohexol 300 MG/1 ML 50ml polymer ONE (19:37)
[2024-08-31] MEDS: Insulin Reg/NS 100units/100mL 100 ML IV SCH (19:37)
[2024-08-31 20:00] LABS: ALANINE AMINOTRANSFERASE 28 U/L (12-78); ALBUMIN 1.7 G/DL (3.4-5.0); ALBUMIN/GLOBULIN RATIO 0.3 (1.1-1.5); ALKALINE PHOSPHATASE 149 IU/L (46-116); ANION GAP 17 (8-16); ASPARTATE AMINO TRANSFERASE 15 U/L (10-37); BILIRUBIN,TOTAL 0.4 MG/DL (0.1-1.0); BLOOD UREA NITROGEN 43 MG/DL (7-18); BUN/CREATININE RATIO 22.1 (10.0-20.0); CALCIUM 8.9 MG/DL (8.5-10.1); CHLORIDE 107 MMOL/L (99-107); CREATININE 1.95 MG/DL (0.60-1.10); MAGNESIUM 2.3 MG/DL (1.5-2.4); PHOSPHORUS 4.5 MG/DL (2.3-4.5); SODIUM 144 MMOL/L (135-145); TOTAL CARBON DIOXIDE 20.1 MMOL/L (24-32); TOTAL PROTEIN 6.6 G/DL (6.4-8.2); eCRCL 45 ML/MIN; eGFR 35 ML/MIN
[2024-08-31] MEDS: lactobacillus rhamnosus 10,000 MMU CELLS/CAPSULE PO SCH (20:00)
[2024-08-31] MEDS: K and/or MAG REPLACEMENT MC SCH (20:00)
[2024-08-31] MEDS ORDERED: fentaNYL/PF 50MCG/1 ML 2ML syringe ONE (20:01)
[2024-08-31 20:28] LABS: GLUCOSE 413 MG/DL (70-104)
[2024-08-31] MEDS ORDERED: sevoflurane 250ml liquid IH ONE (20:30)
--- NOTE | 2024-08-31 20:35 | CONSULTATION REPORT ---
History of Present Illness Providers to CC ~ Reason for Admit\Admit Dx: Abdominal pain Refering MD: Chun Rich. Urologist: Dr. Felton. History of Present Illness 59-year-old white male diabetic known drug abuser presents here floridly septic and in diabetic ketoacidosis secondary to a left 9 mm proximal ureteral stone with obstruction and likely pyelonephritis. This is his 2nd presentation for the same issue. Allergies: Coded Allergies: No Known Allergies (Unverified , 08/25/24) Home Medications Home Medications Active Ondansetron Odt (Ondansetron HCl) 8 Mg Tab.rapdis 1 Tab PO Q6H 3 Days [place] 5/325 MG (Acetaminophen/Hydrocodone Bitart) 5 Mg/325 Mg Tablet 1-2 Tab PO Q4-6 HOURS PRN Lidoderm (Lidocaine) 5 % Adh..patch 1 Patch TOP DAILY 30 Days may wear up to 12 hours Methocarbamol 750 Mg Tablet 1 Tab PO Q8H 30 Days Lantus (Insulin Glargine,Hum.rec.anlog) 100 Unit/1 Ml Vial 30 Unit SQ HS Lisinopril 10 Mg Tablet 10 Mg PO DAILY Reported Jardiance (Empagliflozin) 25 Mg Tablet 1 Tab QAM Metoprolol Tartrate 50 Mg Tablet 1 Tab PO Q12H Past Medical History Medical History Comment Per HPI. Past Surgical History Surgical History Comment No genitourinary history. Past Family History Family History Comment Noncontributory. Past Social History Social History Comment History of methamphetamine abuse. Physical Exam Last Vital Signs Recorded: RN Vital Signs have been reviewed: Yes, Temperature: 97.8, Source: Oral, Heart Rate: 110, Respiratory Rate: 28, BP: 149/93, Pulse Oximetry: 94, Weight: 119.090 General Appearance: severe distress EENT: PERRL/EOMI Neck: normal inspection Respiratory: no respiratory distress Chest: no accessory muscle use Cardiovascular: tachycardia Gastrointestinal: normal palpation Genitalia: normal Rectal: deferred Back: CVA tenderness (L) Extremities: normal range of motion Neurologic: oriented x4 Psychiatric: anxiety Skin: normal color, diaphoresis Lymphatic: no adenopathy Review of Systems ROS ROS Comments: Ten system review was negative. Results Diagram Lab Result Diagram: 08/31/24 1343 08/31/24 1841 Assessment/Plan Problems/Diagnosis: (1) Ureteral stone with hydronephrosis Assessment & Plan: The patient is floridly septic and experiencing diabetic ketoacidosis secondary to a 9 mm left obstructing ureteral stone. I suggested urgent ureteral stent placement in order to decompress the kidney and facilitate drainage of his infection. I described the procedure in detail along with the risks and benefits of such. I also explained that we will defer definitive management of his stone until he clears his sepsis. CARLO TRINIDAD MD Aug 31, 2024 20:35
[2024-08-31] MEDS ORDERED: midazolam 1 mg/ML 2ml injection ONE (20:49)
[2024-08-31] MEDS ORDERED: ceFAZolin 1000mg inj ONE ×2 (20:49)
[2024-08-31] MEDS ORDERED: ondansetron/PF 4mg/2ml inj ONE (20:53)
[2024-08-31] MEDS ORDERED: metoclopramide 5 mg/ml inj ONE (20:53)
--- NOTE | 2024-08-31 21:10 | OPERATIVE REPORT ---
Operative Report Providers to ~ Date of Procedure: Aug 31, 2024 Pre-Operative Diagnosis: Left ureteral stone, sepsis Post-Operative Diagnosis SAME as PRE-Op Procedure Performed One. Left retrograde pyelography. 2. Left retrograde ureteral stent placement. 3. Fluoroscopy with interpretation less than 1 hour. Surgeon: Solo Trinidad MD Batch And Furnace Manager None. Anesthesiologist: Willian Brar Type of Anesthesia: General Findings: Fluoroscopic findings: Left retrograde pyelography demonstrated a radio-opaque proximal filling defect. Final images demonstrated coiling of the ureteral stent proximal to this filling defect and coiling of the stent within the bladder. Complications None. Estimated Blood Loss: None. Specimen Removed: None. Description of Procedure: The patient was sent up to the operative arena from the emergency department and had not received any antibiotics despite being managed for diabetic ketoacidosis with sepsis and pyelonephritis. This was immediately observed after going through the patient's chart during our time-out. The patient was given Ancef and Cipro intravenously as this was the only antibiotic immediately available in the OR. The patient was under the effects of general anesthesia and in dorsal lithotomy with his genitals prepped and draped in sterile fashion. We entered the urethra with a 22 Yi scope and appreciated mild lateral lobe enlargement and an elevated median bar. His bladder had moderate trabeculations and orthotopic ureteral orifices. The left orifice was cannulated to perform retrograde pyelography revealing the above. We advanced a wire into the upper tract, offloaded the open-ended catheter, and advanced the ureteral stent into the renal pelvis and deployed it. Good coiling was observed. Copious cloudy drainage through the stent was observed following deployment. His bladder was emptied and we removed our scope from his bladder. This marked the end of the procedure. Counts repoted as correct: Yes X-Ray findings: No Foreign body SOLO TRINIDAD MD Aug 31, 2024 21:10
[2024-08-31] MEDS: CIPROFLOXACIN 400MG/200ML premix IV ONE (21:45)
[2024-09-01] VITALS (10 sets, daily range): BP systolic 97–135; BP diastolic 68–87; PULSE 98–115; RESP 16–26; TEMP 97.3–98; O2SAT 90–98
[2024-09-01] MEDS: piperacillin/tazo 3.375gm/50ml 50 ML IV SCH
[2024-09-01] MEDS: piperacillin/tazo 3.375gm/50ml 50 ML IV ONE (02:02)
[2024-09-01] MEDS: Insulin Reg/NS 100units/100mL 100 ML IV ONE (02:07)
[2024-09-01] MEDS: insulin glargine (Lantus) pen - multi-dose SQ ONE ×2 (02:09→02:39)
[2024-09-01] MEDS: HYDROcodone/acetaminophen 10/325mg tab PO PRN (02:38)
[2024-09-01 03:26] LABS: ALANINE AMINOTRANSFERASE 29 U/L (12-78); ALBUMIN 1.8 G/DL (3.4-5.0); ALBUMIN/GLOBULIN RATIO 0.4 (1.1-1.5); ALKALINE PHOSPHATASE 140 IU/L (46-116); ANION GAP 10 (8-16); ASPARTATE AMINO TRANSFERASE 30 U/L (10-37); BILIRUBIN,TOTAL 0.2 MG/DL (0.1-1.0); BLOOD UREA NITROGEN 34 MG/DL (7-18); BUN/CREATININE RATIO 23.1 (10.0-20.0); CALCIUM 8.9 MG/DL (8.5-10.1); CHLORIDE 115 MMOL/L (99-107); CREATININE 1.47 MG/DL (0.60-1.10); GLUCOSE 76 MG/DL (70-104); MAGNESIUM 2.5 MG/DL (1.5-2.4); POTASSIUM 4.2 MMOL/L (3.5-5.1); SODIUM 153 MMOL/L (135-145); TOTAL CARBON DIOXIDE 27.6 MMOL/L (24-32); TOTAL PROTEIN 6.9 G/DL (6.4-8.2); eCRCL 59 ML/MIN; eGFR 49 ML/MIN
[2024-09-01 03:55] LABS: BASOPHILS # (AUTO) 0.1 X10'3 (0-0.2); BASOPHILS % (AUTO) 0.4 % (0-1); EOSINOPHILS # (AUTO) 0.1 X10'3 (0-0.9); EOSINOPHILS % (AUTO) 0.7 % (0-6); HEMATOCRIT 43.5 % (42.0-52.0); HEMOGLOBIN 14.4 g/dl (14.0-17.9); LYMPHOCYTES # (AUTO) 1.3 X10'3 (1.1-4.8); LYMPHOCYTES % (AUTO) 8.4 % (21-51); MEAN CORPUSCULAR HEMOGLOBIN 28.1 PG (27.0-31.0); MEAN CORPUSCULAR HGB CONC 33.1 g/dL (33.0-36.5); MEAN CORPUSCULAR VOLUME 84.7 FL (78-98); MEAN PLATELET VOLUME 7.8 FL (7.4-10.4); MONOCYTES # (AUTO) 1.2 X10'3 (0-0.9); NEUTROPHILS # (AUTO) 12.4 X10'3 (1.8-7.7); NEUTROPHILS % (AUTO) 82.5 % (42-75); PLATELET COUNT 183 X10'3 (140-440); RED BLOOD COUNT 5.13 X10'6 (4.70-6.10); RED CELL DISTRIBUTION WIDTH 14.4 % (11.5-14.5); WHITE BLOOD COUNT 15.1 X10'3 (4.5-11.0)
[2024-09-01] MEDS: insulin glargine (Lantus) VIAL- multi-dose SQ ONE (04:45)
[2024-09-01] MEDS ORDERED: dextrose 50%-water 50ml dispensing syringe IV PRN ×2 (05:25)
[2024-09-01] MEDS ORDERED: DEXTROSE 15 GM of carb/4 tabs (each vial/BOTTLE has 4 tablets) PO PRN ×2 (05:25)
[2024-09-01] MEDS ORDERED: glucagon, human recombinant 1mg kit SUBCUT PRN (05:25)
[2024-09-01] MEDS: INSULIN LISPRO 100 UNIT/ML INSULN.PEN MULTI-DOSE SQ SCH ×2 (07:41→07:42)
[2024-09-01 09:11] LABS: BILIRUBIN,URINE NEGATIVE (Neg); CLARITY,URINE SLIGHTLY CLOUDY (Clear); COLOR,URINE STRAW (Yellow); GLUCOSE, URINE >=1000 mg/dl (Neg); KETONES,URINE TRACE mg/dl (Neg); LEUKOCYTE ESTERASE ,URINE NEGATIVE (Neg); NITRITES, URINE NEGATIVE (Neg); OCCULT BLOOD,URINE LARGE (Neg); PROTEIN,URINE TRACE mg/dl (Neg); UROBILINOGEN,URINE 0.2 E.U/dL (0.2-1.0)
[2024-09-01 09:13] LABS: UA COLLECTION TYPE NON-SPECIFIED
[2024-09-01 09:14] LABS: SODIUM,URINE RANDOM < 15 MEQ/L; TOTAL PROTEIN,URINE RANDOM 50.3 MG/DL
[2024-09-01 09:18] LABS: RBC,URINE TNTC /HPF (0-2); SQUAMOUS EPITHELIAL CELL,UR FEW /LPF (FEW)
[2024-09-01 09:21] LABS: BACTERIA,URINE NONE SEEN /HPF (Neg); TRANSITIONAL EPI CELLS,URINE FEW /HPF; WBC,URINE 20-30 /HPF (0-4)
[2024-09-01 09:42] LABS: OSMOLALITY UA 513 MOSM/K (50-1400)
[2024-09-01 10:12] LABS: UA EOSINOPHILS NO EOS /HPF
--- NOTE | 2024-09-01 15:04 | PROGRESS NOTE- Residence ---
Progress Note - Resident Providers to CC Resident Creating Document: BERNY GARRISON, RES ~ Antibiotic Timeout Antibiotic Ordered?: Yes Subjective The patient has a evaluated at the bedside. The patient reports significant improvement of symptoms. Currently denies any pain, chest pain, shortness of breath, palpitations, urinary or intestinal symptoms. Objective Vital Signs Date Time Temp Pulse Resp B/P (MAP) Pulse Ox O2 Delivery O2 Flow Rate FiO2 09/01/24 12:00 107 19 92 Nasal Cannula* 4 36 09/01/24 11:00 98.0 125/68 (87) Physical exam: General: Well alert, well oriented, not confused, not agitated, moderately agitated, well cooperated during the physical. HEENT: Conjunctive are pink, sclerae clear, no icterus, pupil is equal in both sides, reactive to light, no ear discharge, no pharyngeal erythema or an edema. Neck: Supple, no JVD, no lymphadenopathy and thyromegaly. Chest: Equal air entry on both lungs, no additional sounds no rhonchi no wheezing at the moment. Cardiovascular: S1-S2 regular sinus rhythm and, regular rate, no gallops, no rubs, no murmurs Abdomen: No visible peristalsis, Bowel sounds present on auscultation, soft, tenderness in the left lower abdomen with superficial palpation, no guarding, no rigidity Extremities: No obvious deformities, no pitting edema bilaterally, capillary refill intact, peripheral pulsations are intact on both sides, presence of dermatitis stasis changes in bilateral lower extremities. Central Nervous System: No focal neurological deficits, no motor or sensory weakness in all 4 extremities, could move all 4 extremities, 2+ deep tendon reflexes, negative Babinski. Musculoskeletal: No joint swelling, deformities, inflammations, and no scoliosis, tenderness in the left costovertebral angle. Skin: Warm and dry. presence of dermatitis stasis changes in bilateral lower extremities. Result Diagram: 09/01/24 0345 09/01/24 0245 Assessment Assessment 59-year-old male patient came to the hospital with chief complaint of left flank pain. Plan Plan Left flank pain: Left kidney stone: Left hydroureteronephrosis: Sepsis likely secondary to pyelonephritis: POA Sepsis criteria: (heart rate >90, RR > 20, WBC: 16.7, presence of source of infection): S/P Left retrograde ureteral stent placement on 07/31/2024: The patient came to the hospital with chief complaint of left flank pain. CT scan of the abdomen and pelvis: Severe left hydroureteronephrosis with extensive left perinephric edema and stranding, significantly worsened since previous examination. This is secondary to a proximal left ureteral calculus measuring 9 mm, grossly unchanged in position. Recommend urology consultation for further management. Extensive left perinephric edema and stranding likely represents sequela of urinary tract infection/pyelonephritis /calyceal rupture. Mild right hydroureteronephrosis. No obstructing right calculus identified. Retroperitoneal lymphadenopathy which is likely related to the underlying left renal process. Other findings as described. Urology consulted by ER physician, Dr. Mcneill. Awaiting recommendations. Pain control with morphine and [place]. Follow-up urinalysis. Follow-up at cultures. Procalcitonin elevated, elevated leukocytes, WBC 16.7. Zosyn IV t.i.d. Culturelle [id number] mmu b.i.d. NPO for possible procedure. 09/01/2024: The patient underwent: Left retrograde pyelography. Left retrograde ureteral stent placement. Fluoroscopy with interpretation less than 1 hour on 07/31/[address] Villagran. The patient reports improvement of pain. We will continue antibiotics based on Zosyn, Culturelle [id number] mmu b.i.d. pain control. Urinalysis positive for urinary tract infection. Follow-up urine culture and blood cultures. Diabetic ketoacidosis: Glucose levels: 650, elevated anion gap metabolic acidosis, follow-up urinalysis for ketone bodies. Diabetic ketoacidosis protocol started. On ringer lactate at 250 mL/hour. 09/01/2024: DKA protocol stopped. Currently with hyperglycemia/hypoglycemia protocol in place. Lantus 30 units HS. High dose short-acting insulin sliding scale. Electrolytes within reference range. Acute kidney injury likely secondary to obstruction and renal tubular stasis: Creatinine 2.17, GFR 31, BUN/creatinine ratio 22.6. Follow-up urine lytes. Ringer lactate at 250 mL/hour. 09/01/2024: The patient underwent left retrograde ureteral stent placement. Significant improvement of kidney function. Urine lytes showing: FeNa of 0.4%, BUN/creatinine ratio: 22.1 pointing towards prerenal injury. Hypertension: Continue lisinopril 10 mg daily. Metoprolol 50 mg b.i.d. Code status: Full code DVT prophylaxis: SCDs Analgesia/sedation: Morphine and [place] Line/tube: PIV GI prophylaxis: None Nutrition: 75 carb controlled diet. PT: Yes Prognosis: Guarded Disposition: We will continue medical treatment. Anticipated discharge tomorrow. Berny Hussein Internal Medicine Resident [facility] Date of Service: Sep 01, 2024 Billing Provider: CUAUHTEMOC GORDON MD Common Visit Codes: [id number] INP/OBS CARE(HIGH) BERNY GARRISON, RES Sep 01, 2024 15:04 CUAUHTEMOC GORDON MD Sep 01, 2024 22:35
[2024-09-01] MEDS: normal saline 1000ml 1,000 ML IV SCH (15:41)
[2024-09-01] MEDS: lisinopril 10 MG tablet PO SCH (15:41)
[2024-09-01] MEDS: diazepam 5mg tablet PO ONE (16:15)
[2024-09-01 18:52] LABS: CHOL/HDL RATIO 3.6 (0.00-4.99); CHOLESTEROL 164 MG/DL (0-200); HDL CHOLESTEROL 45 MG/DL (35-60); LDL CHOLESTEROL 95 MG/DL (50-100); TRIGLYCERIDES 109 MG/DL (20-135)
[2024-09-01] MEDS ORDERED: insulin glargine (Lantus) pen - multi-dose SQ SCH (21:00)
[2024-09-01] MEDS: insulin glargine (Lantus) pen - multi-dose SQ SCH (21:01)
[2024-09-01] MEDS: metoprolol tartrate 50mg tablet PO SCH (21:06)
[2024-09-01] MEDS: morphine 2 MG/ML inj. syringe IV PRN (21:07)
[2024-09-01] MEDS: LORazepam 2 mg/ml vial IV PRN (21:08)
[2024-09-01] MEDS: normal saline 500ml IV soln 500 ML IV ONE (21:19)
[2024-09-01 23:31] LABS: URINE AMPHETAMINE SCREEN NEGATIVE (Neg); URINE BARBITUATE SCREEN NEGATIVE (Neg); URINE BENZODIAZEPINES SCREEN POSITIVE (Neg); URINE CANNABINOID SCREEN NEGATIVE (Neg); URINE COCAINE SCREEN NEGATIVE (Neg); URINE METHADONE SCREEN NEGATIVE (Neg); URINE OPIATE SCREEN POSITIVE (Neg); URINE PHENCYCLIDINE SCREEN NEGATIVE (Neg)
[2024-09-02] VITALS (15 sets, daily range): BP systolic 100–143; BP diastolic 56–86; PULSE 93–113; RESP 13–30; TEMP 97.2–98; O2SAT 92–98
[2024-09-02] MEDS: LORazepam 2 mg/ml vial IV PRN (03:29)
[2024-09-02] MEDS: morphine 2 MG/ML inj. syringe IV PRN (04:15)
[2024-09-02] MEDS: LIDOcaine 5% patch TP SCH (07:47)
[2024-09-02 08:11] LABS: BASOPHILS # (AUTO) 0.1 X10'3 (0-0.2); BASOPHILS % (AUTO) 0.5 % (0-1); EOSINOPHILS # (AUTO) 0.2 X10'3 (0-0.9); EOSINOPHILS % (AUTO) 1.7 % (0-6); HEMATOCRIT 42.4 % (42.0-52.0); HEMOGLOBIN 13.8 g/dl (14.0-17.9); LYMPHOCYTES # (AUTO) 1.6 X10'3 (1.1-4.8); LYMPHOCYTES % (AUTO) 11.4 % (21-51); MEAN CORPUSCULAR HEMOGLOBIN 27.9 PG (27.0-31.0); MEAN CORPUSCULAR HGB CONC 32.5 g/dL (33.0-36.5); MEAN CORPUSCULAR VOLUME 85.8 FL (78-98); MEAN PLATELET VOLUME 8.5 FL (7.4-10.4); MONOCYTES # (AUTO) 1.2 X10'3 (0-0.9); MONOCYTES % (AUTO) 8.6 % (2-12); NEUTROPHILS # (AUTO) 11.1 X10'3 (1.8-7.7); NEUTROPHILS % (AUTO) 77.8 % (42-75); PLATELET COUNT 171 X10'3 (140-440); RED BLOOD COUNT 4.94 X10'6 (4.70-6.10); WHITE BLOOD COUNT 14.3 X10'3 (4.5-11.0)
[2024-09-02 08:33] LABS: ALANINE AMINOTRANSFERASE 36 U/L (12-78); ALBUMIN 1.5 G/DL (3.4-5.0); ALBUMIN/GLOBULIN RATIO 0.3 (1.1-1.5); ALKALINE PHOSPHATASE 154 IU/L (46-116); ANION GAP 10 (8-16); ASPARTATE AMINO TRANSFERASE 29 U/L (10-37); BILIRUBIN,TOTAL 0.3 MG/DL (0.1-1.0); BLOOD UREA NITROGEN 32 MG/DL (7-18); BUN/CREATININE RATIO 23.2 (10.0-20.0); CALCIUM 8.2 MG/DL (8.5-10.1); CHLORIDE 112 MMOL/L (99-107); CREATININE 1.38 MG/DL (0.60-1.10); GLUCOSE 151 MG/DL (70-104); MAGNESIUM 2.2 MG/DL (1.5-2.4); POTASSIUM 4.1 MMOL/L (3.5-5.1); SODIUM 145 MMOL/L (135-145); TOTAL CARBON DIOXIDE 22.9 MMOL/L (24-32); eCRCL 63 ML/MIN; eGFR 53 ML/MIN
[2024-09-02] MEDS: vancomycin/NS 1 GM ADD-VANTAGE 250 ML IV SCH (09:42)
[2024-09-02 12:59] LABS: ABG BASE EXCESS -2.4 mmol/L (-2.0-3.0); ABG HCO3 21.1 mmol/L (21.0-28.0); ABG OXYGEN SATURATION 95.9 % (94.0-98.0); ABG PH (T) 7.435 (7.350-7.450); ABG PO2 (T) 71.9 mmHg (83.0-108.0); ALLEN'S TEST POSITIVE; FCOHb 0.8 % (0.5-1.5); FHHb 4.1 % (0.0-5.0); FMetHb 0.1 % (0.0-1.5); MODE BIPAP; PATIENT TEMPERATURE 36.4; TOTAL HEMOGLOBIN 14.4 G/dl (13.5-17.5)
--- NOTE | 2024-09-02 18:28 | PROGRESS NOTE- Residence ---
Progress Note - Resident Providers to CC Resident Creating Document: SAMUEL BRADY RES ~ Antibiotic Timeout Antibiotic Ordered?: Yes Subjective Patient seen and examined at bedside. Currently on BiPAP. When being taken off BiPAP he keeps getting tachypneic with a respiratory rate in the high 40s. Objective Vital Signs Date Time Temp Pulse Resp B/P (MAP) Pulse Ox O2 Delivery O2 Flow Rate FiO2 09/02/24 15:20 100 26 95 30 25 09/02/24 11:00 97.5 100/56 (71) Nasal Cannula 6.0 Result Diagram: 09/02/24 0744 09/02/24 0744 General: Drowsy, on BiPAP HEENT: Conjunctive are pink, sclerae clear, no icterus, pupil is equal in both sides, reactive to light, no ear discharge, no pharyngeal erythema or an edema. Neck: Supple, no JVD, no lymphadenopathy and thyromegaly. Chest: Tachypneic, equal breath sounds bilaterally. Cardiovascular: S1-S2 regular sinus rhythm and, regular rate, no gallops, no rubs, no murmurs Abdomen: No visible peristalsis, Bowel sounds present on auscultation, soft, tenderness in the left lower abdomen with superficial palpation, no guarding, no rigidity Extremities: No obvious deformities, no pitting edema bilaterally, capillary refill intact, peripheral pulsations are intact on both sides, presence of dermatitis stasis changes in bilateral lower extremities. Central Nervous System: No focal neurological deficits, no motor or sensory weakness in all 4 extremities, could move all 4 extremities, 2+ deep tendon reflexes, negative Babinski. Musculoskeletal: No joint swelling, deformities, inflammations, and no scoliosis, tenderness in the left costovertebral angle. Skin: Warm and dry. presence of dermatitis stasis changes in bilateral lower extremities. Assessment Assessment 59-year-old male patient came to the hospital with chief complaint of left flank pain. Plan Plan Left flank pain: Left kidney stone: Left hydroureteronephrosis: Sepsis likely secondary to pyelonephritis: POA Sepsis criteria: (heart rate >90, RR > 20, WBC: 16.7, presence of source of infection): S/P Left retrograde ureteral stent placement on 07/31/2024: The patient came to the hospital with chief complaint of left flank pain. CT scan of the abdomen and pelvis: Severe left hydroureteronephrosis with extensive left perinephric edema and stranding, significantly worsened since previous examination. This is secondary to a proximal left ureteral calculus measuring 9 mm, grossly unchanged in position. Recommend urology consultation for further management. Extensive left perinephric edema and stranding likely represents sequela of urinary tract infection/pyelonephritis /calyceal rupture. Mild right hydroureteronephrosis. No obstructing right calculus identified. Retroperitoneal lymphadenopathy which is likely related to the underlying left renal process. Other findings as described. Urology consulted by ER physician, Dr. Mcneill. Awaiting recommendations. Pain control with morphine and [place]. Follow-up urinalysis. Follow-up at cultures. Procalcitonin elevated, elevated leukocytes, WBC 16.7. Zosyn IV t.i.d. Culturelle [id number] mmu b.i.d. NPO for possible procedure. 09/01/2024: The patient underwent: Left retrograde pyelography. Left retrograde ureteral stent placement. Fluoroscopy with interpretation less than 1 hour on 07/31/[address] Villagran. The patient reports improvement of pain. We will continue antibiotics based on Zosyn, Culturelle [id number] mmu b.i.d. pain control. Urinalysis positive for urinary tract infection. Follow-up urine culture and blood cultures. 09/02/2024: WBCs downtrending Continue Zosyn Last night he got a bit agitated and was thought to be withdrawing, this morning while being taken off the BiPAP he is getting tachypneic. This could be secondary from his withdrawal. ABG was done, no acute significant findings noted. Continue BiPAP for now. Avoid Ativan as he is not withdrawing from alcohol Follow up with PT recommendations Diabetic ketoacidosis: Glucose levels: 650, elevated anion gap metabolic acidosis, follow-up urinalysis for ketone bodies. Diabetic ketoacidosis protocol started. On ringer lactate at 250 mL/hour. 09/02/2024 Continue hyperglycemia/hypoglycemia protocol in place. Lantus 30 units HS. High dose short-acting insulin sliding scale. Electrolytes within reference range. Acute kidney injury likely secondary to obstruction and renal tubular stasis: Creatinine 2.17, GFR 31, BUN/creatinine ratio 22.6. Follow-up urine lytes. Ringer lactate at 250 mL/hour. 09/01/2024: The patient underwent left retrograde ureteral stent placement. Significant improvement of kidney function. Urine lytes showing: FeNa of 0.4%, BUN/creatinine ratio: 22.1 pointing towards prerenal injury. 09/02/2024: Creatinine improving, continue to monitor BMP Hypertension: Continue lisinopril 10 mg daily. Metoprolol 50 mg b.i.d. Code status: Full code DVT prophylaxis: SCDs Analgesia/sedation: Morphine and [place] Line/tube: PIV GI prophylaxis: None Nutrition: 75 carb controlled diet. PT: Yes Prognosis: Guarded Disposition: Continue medical management. Date of Service: Sep 02, 2024 Billing Provider: CUAUHTEMOC GORDON MD Common Visit Codes: [id number] INP/OBS CARE(HIGH) SAMUEL BRADY, RES Sep 02, 2024 18:28 CUAUHTEMOC GORDON MD Sep 03, 2024 06:39
[2024-09-02] MEDS ORDERED: morphine 4 MG/ML inj SYRINge IV PRN (21:07)
[2024-09-03] VITALS (15 sets, daily range): BP systolic 91–125; BP diastolic 62–85; PULSE 74–104; RESP 14–30; TEMP 97–98.4; O2SAT 90–96
[2024-09-03] MEDS: methylPREDNISolone sod succ 125mg/2ml vial IV ONE (01:43)
[2024-09-03] MEDS: morphine 4 MG/ML inj SYRINge IV PRN (01:48)
[2024-09-03 07:49] LABS: BASOPHILS % (AUTO) 0.3 % (0-1); EOSINOPHILS # (AUTO) 0.1 X10'3 (0-0.9); EOSINOPHILS % (AUTO) 0.4 % (0-6); HEMATOCRIT 44.2 % (42.0-52.0); HEMOGLOBIN 14.4 g/dl (14.0-17.9); LYMPHOCYTES # (AUTO) 0.7 X10'3 (1.1-4.8); LYMPHOCYTES % (AUTO) 4.9 % (21-51); MEAN CORPUSCULAR HEMOGLOBIN 28.3 PG (27.0-31.0); MEAN CORPUSCULAR HGB CONC 32.6 g/dL (33.0-36.5); MEAN CORPUSCULAR VOLUME 86.9 FL (78-98); MONOCYTES # (AUTO) 0.3 X10'3 (0-0.9); MONOCYTES % (AUTO) 2.4 % (2-12); NEUTROPHILS # (AUTO) 12.7 X10'3 (1.8-7.7); PLATELET COUNT 192 X10'3 (140-440); RED BLOOD COUNT 5.08 X10'6 (4.70-6.10); RED CELL DISTRIBUTION WIDTH 14.3 % (11.5-14.5); WHITE BLOOD COUNT 13.7 X10'3 (4.5-11.0)
[2024-09-03 08:08] LABS: ALANINE AMINOTRANSFERASE 30 U/L (12-78); ALBUMIN 1.6 G/DL (3.4-5.0); ALBUMIN/GLOBULIN RATIO 0.3 (1.1-1.5); ALKALINE PHOSPHATASE 189 IU/L (46-116); ANION GAP 13 (8-16); ASPARTATE AMINO TRANSFERASE 33 U/L (10-37); BILIRUBIN,TOTAL 0.3 MG/DL (0.1-1.0); BLOOD UREA NITROGEN 23 MG/DL (7-18); BUN/CREATININE RATIO 18.3 (10.0-20.0); CALCIUM 8.2 MG/DL (8.5-10.1); CHLORIDE 111 MMOL/L (99-107); CREATININE 1.26 MG/DL (0.60-1.10); GLUCOSE 237 MG/DL (70-104); MAGNESIUM 2.1 MG/DL (1.5-2.4); POTASSIUM 4.6 MMOL/L (3.5-5.1); SODIUM 144 MMOL/L (135-145); TOTAL CARBON DIOXIDE 20.4 MMOL/L (24-32); TOTAL PROTEIN 6.5 G/DL (6.4-8.2); eCRCL 69 ML/MIN; eGFR 59 ML/MIN
[2024-09-03] MEDS: furosemide 40mg/4ml inj IV SCH (11:41)
--- NOTE | 2024-09-03 15:39 | PROGRESS NOTE- Residence ---
Progress Note - Resident Providers to CC Resident Creating Document: BERNY GARRISON RES ~ Antibiotic Timeout Antibiotic Ordered?: Yes Subjective Patient seen and examined at bedside. Reporting dry cough and mild shortness of breath. Objective Vital Signs Date Time Temp Pulse Resp B/P (MAP) Pulse Ox O2 Delivery O2 Flow Rate FiO2 09/03/24 11:00 97.5 74 14 125/76 (92) 95 Nasal Cannula 4.0 09/03/24 02:54 44 Physical exam: General: Well alert, somnolent, well oriented, moderately agitated, well cooperated during the physical. HEENT: Conjunctive are pink, sclerae clear, no icterus, pupil is equal in both sides, reactive to light, no ear discharge, no pharyngeal erythema or an edema. Neck: Supple, no JVD, no lymphadenopathy and thyromegaly. Chest: Equal air entry on both lungs, no additional sounds no rhonchi no wheezing at the moment. Cardiovascular: S1-S2 regular sinus rhythm and, regular rate, no gallops, no rubs, no murmurs Abdomen: No visible peristalsis, Bowel sounds present on auscultation, soft, tenderness in the left lower abdomen with superficial palpation, no guarding, no rigidity Extremities: No obvious deformities, no pitting edema bilaterally, capillary refill intact, peripheral pulsations are intact on both sides, presence of dermatitis stasis changes in bilateral lower extremities. Central Nervous System: No focal neurological deficits, no motor or sensory weakness in all 4 extremities, could move all 4 extremities, 2+ deep tendon reflexes, negative Babinski. Musculoskeletal: No joint swelling, deformities, inflammations, and no scoliosis, tenderness in the left costovertebral angle. Skin: Warm and dry. presence of dermatitis stasis changes in bilateral lower extremities. Result Diagram: 09/03/2464009/03/24640 Assessment Assessment 59-year-old male patient came to the hospital with chief complaint of left flank pain. Plan Plan Left flank pain: Left kidney stone: Left hydroureteronephrosis: Sepsis likely secondary to pyelonephritis: POA Sepsis criteria: (heart rate >90, RR > 20, WBC: 16.7, presence of source of infection): S/P Left retrograde ureteral stent placement on 07/31/2024: The patient came to the hospital with chief complaint of left flank pain. CT scan of the abdomen and pelvis: Severe left hydroureteronephrosis with extensive left perinephric edema and stranding, significantly worsened since previous examination. This is secondary to a proximal left ureteral calculus measuring 9 mm, grossly unchanged in position. Recommend urology consultation for further management. Extensive left perinephric edema and stranding likely represents sequela of urinary tract infection/pyelonephritis /calyceal rupture. Mild right hydroureteronephrosis. No obstructing right calculus identified. Retroperitoneal lymphadenopathy which is likely related to the underlying left renal process. Other findings as described. Urology consulted by ER physician, Dr. Mcneill. Awaiting recommendations. Pain control with morphine and [place]. Follow-up urinalysis. Follow-up at cultures. Procalcitonin elevated, elevated leukocytes, WBC 16.7. Zosyn IV t.i.d. Culturelle [id number] mmu b.i.d. NPO for possible procedure. 09/01/2024: The patient underwent: Left retrograde pyelography. Left retrograde ureteral stent placement. Fluoroscopy with interpretation less than 1 hour on 07/31/[address] Villagran. The patient reports improvement of pain. We will continue antibiotics based on Zosyn, Culturelle 55876 mmu b.i.d. pain control. Urinalysis positive for urinary tract infection. Follow-up urine culture and blood cultures. 09/02/2024: WBCs downtrending Continue Zosyn Last night he got a bit agitated and was thought to be withdrawing, this morning while being taken off the BiPAP he is getting tachypneic. This could be secondary from his withdrawal. ABG was done, no acute significant findings noted. Continue BiPAP for now. Avoid Ativan as he is not withdrawing from alcohol Follow up with PT recommendations. 09/03/2024: WBC trending down, reporting mild shortness of breath, elevated proBNP: 4000. Started on Lasix 40 mg b.i.d. IV. Echocardiogram showing LVEF 45-50%, RVSP 43 mmHg. Right ventricle is moderate 80 dilated in size with normal function. We will discontinue IV fluids. We will continue Zosyn IV t.i.d. and probiotic Culturelle 16972 mmu b.i.d. incentive spirometry every 2 hours while awake. Diabetic ketoacidosis: Glucose levels: 650, elevated anion gap metabolic acidosis, follow-up urinalysis for ketone bodies. Diabetic ketoacidosis protocol started. On ringer lactate at 250 mL/hour. 09/02/2024 Continue hyperglycemia/hypoglycemia protocol in place. Lantus 30 units HS. High dose short-acting insulin sliding scale. Electrolytes within reference range. 09/03/2024: Elevated glucose levels. Increasing Lantus to 36 units HS. High dose short-acting insulin sliding scale. Acute kidney injury likely secondary to obstruction and renal tubular stasis- improved: Creatinine 2.17, GFR 31, BUN/creatinine ratio 22.6. Follow-up urine lytes. Ringer lactate at 250 mL/hour. 09/01/2024: The patient underwent left retrograde ureteral stent placement. Significant improvement of kidney function. Urine lytes showing: FeNa of 0.4%, BUN/creatinine ratio: 22.1 pointing towards prerenal injury. 09/02/2024: Creatinine improving, continue to monitor BMP 09/03/2024: Kidney function improving, patient complaining of shortness of breath. Echocardiogram showing left ventricular ejection fraction of 45-50%. ProBNP 4000. Starting Lasix 40 mg b.i.d., stopping IV fluids. Hypertension: Blood pressure within reference range. Continue lisinopril 10 mg daily. Metoprolol 50 mg b.i.d. Code status: Full code DVT prophylaxis: SCDs Analgesia/sedation: Morphine and [place] Line/tube: PIV GI prophylaxis: None Nutrition: 75 carb controlled diet. PT: The patient will require post acute care. Prognosis: Guarded Disposition: Continue medical management. The patient will require post acute care. Berny Hussein Internal Medicine Resident [facility] Date of Service: Sep 03, 2024 Billing Provider: CUAUHTEMOC GORDON MD Common Visit Codes: [id number] INP/OBS CARE(HIGH) BERNY GARRISON, RES Sep 03, 2024 15:39 CUAUHTEMOC GORDON MD Sep 04, 2024 08:17
--- NOTE | 2024-09-03 17:21 | RADIOLOGY REPORT ---
CHEST RADIOGRAPH Indication: sob Technique: Single frontal view of the chest was obtained COMPARISON: DI CHEST,SINGLE VIEW on DOS: 08/31/24, CHEST,SINGLE VIEW on DOS: 03/15/20 FINDINGS: Lines and Tubes: Faint linear opacity projecting over the right neck base and right side of the media stinum may be external to the patient. Lungs: No focal consolidative opacity. Pleura: No effusion. No pneumothorax. Cardiomediastinal contours: Unremarkable Bones: Unremarkable IMPRESSION: No acute radiographic abnormality of the chest.
[2024-09-03] MEDS: INSULIN LISPRO 100 UNIT/ML INSULN.PEN MULTI-DOSE SQ SCH (17:25)
--- NOTE | 2024-09-03 17:25 | CARDIOLOGY REPORT ---
APPROVED REPORT EXAM: Comprehensive 2D, Doppler, and color-flow Echocardiogram. Patient Location: [address] Blood Pressure: 125/76 mmHg Heart Rate: 77 bpm Rhythm: SINUS Indications CONGESTIVE HEART FAILURE HYPERTENSION Cardiologst: none Previous echo: 01/15/17 [facility] (EF 55%, mild LVH, trace AI, trace MR) 2D Dimensions RVDd 4.3 cm LA Diam6.3 cm IVSd 1.2 (0.7-1.1cm) LVDd 4.4 cm PWd 1.4 (0.7-1.1cm) IVSs 1.5 (0.8-1.2cm) LVDs 3.3 (2.5-4.0cm) PWs 1.7 (0.8-1.2cm) LVOT Diameter 2.17 (1.8-2.4cm) LVEF(%) 49.0 (>50%) Ao Asc Diam.3.69 cmIVC 20.43 mm FS (%) 24.5 % SV 37.4 ml CO 3.0 L/min M-Mode Dimensions Left Atrium(MM) 4.00 (2.5-4.0cm) IVSd 1.07 (0.7-1.1cm) LVDd 4.20 (4.0-5.6cm) Aortic Root 3.54 (2.2-3.7cm) PWd 1.11 (0.7-1.1cm) Aortic Cusp Exc 1.48 (1.5-2.0cm) IVSs 1.32 cm MV EPSS 0.6 (<0.5cm) LVDs 3.17 (2.0-3.8cm) FS (%) 25 % PWs 1.44 cm ESV(Teich) 40.1 ml LVEF(%) 49 (>50%) Biplane 2D LA Volumes LA ESV Index 24.58 mL/m2 Aortic Valve AoV Peak Hermilo. 162.4 cm/s AoV VTI 24.4 cm AO Peak GR. 10.5 mmHg AO Mean GR. 6 mmHg LVOT VTI 21.32 cm LVOT Peak Hermilo. 109.7 cm/s BTEO(VTI)/BSA 3.24 cm2/m2 BETO (VTI) 3.24 cm2 Mitral Valve MV E Velocity 59.9 cm/s MV Peak Gr. 2 mmHg MV DECEL TIME 504 ms MV A Velocity 79.1 cm/s MV PHT 64 ms E/A Ratio 0.8 MVA (PHT) 3.44 cm2 MV VMax74.4 cm/s TDI Medial E' P. V 10.54 cm/s E/Medial E' 5.7 Tricuspid Valve TR P. Velocity 288 cm/s RAP ESTIMATE 10 mmHg TR Peak Gr. 33 mmHg RVSP 43 mmHg Pulmonary Vein S1 Velocity 43.9 cm/s D2 Velocity 25.6 cm/s PVa Dhigkmir93.1 cm/s PVa Zuqjrncl25 msec LEFT VENTRICLE Normal LV size and mildly reduced function. Mild concentric hypertrophy. LVEF is 45-50%. RIGHT VENTRICLE RV is moderately dilated in size with normal function. RVSP is estimated at 43 mmHg. ATRIA LA size is normal. RA appears at least moderately dilated. AORTIC VALVE Trileaflet AV appears mildly sclerotic without stenosis or insufficiency. MITRAL VALVE Mild MV annular calcification without stenosis. Trace regurgitation. TRICUSPID VALVE TV appears structurally normal with trace regurgitation. PULMONIC VALVE Normal PV without stenosis, physiologic insufficiency. GREAT VESSELS Aortic root is normal in size. Ascending aorta is normal in size. IVC is normal in size and collapses greater than 50% with inspiration. PERICARDIUM Trivial pericardial effusion without hemodynamic compromise. Other Information Study Quality: Adequate Conclusion Normal LV size and mildly reduced function. Mild concentric hypertrophy. LVEF is 45-50%. RV is moderately dilated in size with normal function. RVSP is estimated at 43 mmHg. LA size is normal. RA appears at least moderately dilated. Trileaflet AV appears mildly sclerotic without stenosis or insufficiency. Mild MV annular calcification without stenosis. Trace regurgitation. TV appears structurally normal with trace regurgitation. Trivial pericardial effusion without hemodynamic compromise.
--- NOTE | 2024-09-03 17:55 | RADIOLOGY REPORT ---
Exam: DI X-RAY EXAM ABDOMEN 2 VIEWS Indication: STENT PLACEMENT LT URETER Comparison: CT 08/31/2024. Technique: 5 fluoroscopic images were obtained of the abdomen and pelvis. Findings/Impression: Low resolution intraoperative fluoroscopic images demonstrate contrast opacification of the left guicho l collecting system and placement of a left ureteral stent. Total fluoroscopy time was 11.8 seconds. Please see operative note for further details.
[2024-09-03 18:24] LABS: ABG BASE EXCESS -4.4 mmol/L (-2.0-3.0); ABG HCO3 17.2 mmol/L (21.0-28.0); ABG OXYGEN SATURATION 96.6 % (94.0-98.0); ABG PCO2 (T) 24.2 mmHg (35.0-48.0); ABG PH (T) 7.469 (7.350-7.450); ABG PO2 (T) 77.2 mmHg (83.0-108.0); ALLEN'S TEST Modified; FCOHb 0.6 % (0.5-1.5); FHHb 3.4 % (0.0-5.0); MODE bipap; PATIENT TEMPERATURE 36.9; TOTAL HEMOGLOBIN 15.3 G/dl (13.5-17.5)
[2024-09-03] MEDS ORDERED: VANCOMYCIN LEVEL IV ONE (20:30)
[2024-09-03 21:23] LABS: APTT 25 SECONDS (22-32); INR 1.2 INR; PROTHROMBIN TIME 12.4 SECONDS (9.0-12.0)
[2024-09-03 21:25] LABS: ALANINE AMINOTRANSFERASE 30 U/L (12-78); ALBUMIN 1.6 G/DL (3.4-5.0); ALBUMIN/GLOBULIN RATIO 0.3 (1.1-1.5); ALKALINE PHOSPHATASE 187 IU/L (46-116); ANION GAP 11 (8-16); ASPARTATE AMINO TRANSFERASE 21 U/L (10-37); BILIRUBIN,TOTAL 0.3 MG/DL (0.1-1.0); BLOOD UREA NITROGEN 30 MG/DL (7-18); BUN/CREATININE RATIO 19.5 (10.0-20.0); CALCIUM 8.1 MG/DL (8.5-10.1); CHLORIDE 106 MMOL/L (99-107); CREATININE 1.54 MG/DL (0.60-1.10); GLUCOSE 333 MG/DL (70-104); POTASSIUM 4.2 MMOL/L (3.5-5.1); SODIUM 141 MMOL/L (135-145); TOTAL CARBON DIOXIDE 24.5 MMOL/L (24-32); TOTAL PROTEIN 6.5 G/DL (6.4-8.2); eCRCL 57 ML/MIN; eGFR 46 ML/MIN
[2024-09-03 21:32] LABS: PRO BRAIN NATRIURETIC PEPTIDE 2064 PG/ML (0-125)
[2024-09-03 21:58] LABS: BASOPHILS % (AUTO) 0 % (0-1); EOSINOPHILS % (AUTO) 0.1 % (0-6); HEMATOCRIT 45.1 % (42.0-52.0); HEMOGLOBIN 14.7 g/dl (14.0-17.9); LYMPHOCYTES # (AUTO) 0.8 X10'3 (1.1-4.8); MEAN CORPUSCULAR HEMOGLOBIN 27.9 PG (27.0-31.0); MEAN CORPUSCULAR HGB CONC 32.7 g/dL (33.0-36.5); MEAN CORPUSCULAR VOLUME 85.4 FL (78-98); MEAN PLATELET VOLUME 9.1 FL (7.4-10.4); MONOCYTES # (AUTO) 0.7 X10'3 (0-0.9); MONOCYTES % (AUTO) 4.8 % (2-12); NEUTROPHILS # (AUTO) 13.4 X10'3 (1.8-7.7); NEUTROPHILS % (AUTO) 90.1 % (42-75); PLATELET COUNT 230 X10'3 (140-440); RED BLOOD COUNT 5.28 X10'6 (4.70-6.10); WHITE BLOOD COUNT 14.9 X10'3 (4.5-11.0)
[2024-09-03] MEDS: insulin glargine (Lantus) pen - multi-dose SQ SCH (22:26)
[2024-09-04] VITALS (16 sets, daily range): BP systolic 92–124; BP diastolic 37–80; PULSE 62–100; RESP 17–27; TEMP 97–98.2; O2SAT 90–99
[2024-09-04 05:08] LABS: BASOPHILS % (AUTO) 0.1 % (0-1); EOSINOPHILS % (AUTO) 0.1 % (0-6); HEMATOCRIT 42.2 % (42.0-52.0); HEMOGLOBIN 13.7 g/dl (14.0-17.9); LYMPHOCYTES # (AUTO) 1.5 X10'3 (1.1-4.8); LYMPHOCYTES % (AUTO) 7.5 % (21-51); MEAN CORPUSCULAR HEMOGLOBIN 27.8 PG (27.0-31.0); MEAN CORPUSCULAR HGB CONC 32.4 g/dL (33.0-36.5); MEAN CORPUSCULAR VOLUME 85.6 FL (78-98); MEAN PLATELET VOLUME 8.9 FL (7.4-10.4); MONOCYTES # (AUTO) 1.3 X10'3 (0-0.9); MONOCYTES % (AUTO) 6.8 % (2-12); NEUTROPHILS # (AUTO) 16.8 X10'3 (1.8-7.7); NEUTROPHILS % (AUTO) 85.5 % (42-75); PLATELET COUNT 220 X10'3 (140-440); RED BLOOD COUNT 4.92 X10'6 (4.70-6.10); RED CELL DISTRIBUTION WIDTH 14.2 % (11.5-14.5); WHITE BLOOD COUNT 19.6 X10'3 (4.5-11.0)
[2024-09-04 05:42] LABS: ALANINE AMINOTRANSFERASE 36 U/L (12-78); ALBUMIN 1.4 G/DL (3.4-5.0); ALBUMIN/GLOBULIN RATIO 0.3 (1.1-1.5); ALKALINE PHOSPHATASE 185 IU/L (46-116); ANION GAP 9 (8-16); ASPARTATE AMINO TRANSFERASE 38 U/L (10-37); BILIRUBIN,TOTAL 0.3 MG/DL (0.1-1.0); BLOOD UREA NITROGEN 36 MG/DL (7-18); BUN/CREATININE RATIO 23.7 (10.0-20.0); CALCIUM 8.3 MG/DL (8.5-10.1); CHLORIDE 108 MMOL/L (99-107); CREATININE 1.52 MG/DL (0.60-1.10); GLUCOSE 286 MG/DL (70-104); MAGNESIUM 2.1 MG/DL (1.5-2.4); POTASSIUM 4.7 MMOL/L (3.5-5.1); SODIUM 141 MMOL/L (135-145); TOTAL CARBON DIOXIDE 24.5 MMOL/L (24-32); TOTAL PROTEIN 5.9 G/DL (6.4-8.2); eCRCL 57 ML/MIN; eGFR 47 ML/MIN
--- NOTE | 2024-09-04 07:31 | ELECTROCARDIOGRAPH REPORT ---
[facility] Test Date: 2024-09-03 Test Time: 18:04:31 Pat Name: RIRI CLAYTON Department: 3rd FLOOR PCU Room: [address] Gender: M Slitter Scorer: RONALD : 1965 Requested By: CUAUHTEMOC GORDON Order Number: [id number] Reading MD: Dr. Des Scott Measurements Intervals Sherrill Rate: 94 P: 74 LA: 137 QRS: 72 QRSD: 92 T: 61 QT: 388 QTc: 486 Interpretive Statements Sinus rhythm Inferolateral infarct, acute Anterior infarct, acute (LAD) Electronically Signed On 09-05-2024 8:10:[address] Des Scott Please click the below link to view image of tracing.
[2024-09-04] MEDS: HYDROcodone/acetaminophen 5mg/325mg tablet PO PRN (08:07)
--- NOTE | 2024-09-04 14:40 | RADIOLOGY REPORT ---
CHEST RADIOGRAPH Indication: sob Technique: Single frontal view of the chest was obtained COMPARISON: None FINDINGS: The cardiac silhouette is enlarged. The lungs demonstrate bilateral patchy airspace opacities. The pu lmonary vasculature is prominent. There is no pleural effusion.. There is no pneumothorax. IMPRESSION: 1. Cardiomegaly with pulmonary vascular congestion and bilateral patchy airspace opacities.
--- NOTE | 2024-09-04 15:28 | PROGRESS NOTE- Residence ---
Progress Note - Resident Providers to CC Resident Creating Document: BERNY GARRISON, MILO ~ Antibiotic Timeout Antibiotic Ordered?: Yes Subjective Patient seen and examined at bedside. The patient reports improvement of shortness of breath, denies any pain. Objective Vital Signs Date Time Temp Pulse Resp B/P (MAP) Pulse Ox O2 Delivery O2 Flow Rate FiO2 09/04/24 15:11 81 23 97 8.0 09/04/24 11:00 97.3 110/80 (90) Nasal Cannula 09/03/24 18:51 40 Physical exam: General: Well alert, somnolent, well oriented, moderately agitated, well cooperated during the physical. HEENT: Conjunctive are pink, sclerae clear, no icterus, pupil is equal in both sides, reactive to light, no ear discharge, no pharyngeal erythema or an edema. Neck: Supple, no JVD, no lymphadenopathy and thyromegaly. Chest: Equal air entry on both lungs, no additional sounds no rhonchi no wheezing at the moment. Cardiovascular: S1-S2 regular sinus rhythm and, regular rate, no gallops, no rubs, no murmurs Abdomen: No visible peristalsis, Bowel sounds present on auscultation, soft, tenderness in the left lower abdomen with superficial palpation, no guarding, no rigidity Extremities: No obvious deformities, no pitting edema bilaterally, capillary refill intact, peripheral pulsations are intact on both sides, presence of dermatitis stasis changes in bilateral lower extremities. Central Nervous System: No focal neurological deficits, no motor or sensory weakness in all 4 extremities, could move all 4 extremities, 2+ deep tendon reflexes, negative Babinski. Musculoskeletal: No joint swelling, deformities, inflammations, and no scoliosis, without tenderness. Skin: Warm and dry. presence of dermatitis stasis changes in bilateral lower extremities. Result Diagram: 09/04/24 0442 09/04/24 0442 Coagulation Studies Laboratory Tests Test 09/03/24 20:57 Prothrombin Time 12.4 SECONDS (9.0-12.0) H INR International Normalized Ratio 1.2 INR Activated Partial Thromboplast Time 25 SECONDS (22-32) Coagulation Comments Assessment Assessment 59-year-old male patient came to the hospital with chief complaint of left flank pain. Plan Plan Left flank pain: Left kidney stone: Left hydroureteronephrosis: Sepsis likely secondary to pyelonephritis: POA Sepsis criteria: (heart rate >90, RR > 20, WBC: 16.7, presence of source of infection): S/P Left retrograde ureteral stent placement on 07/31/2024: The patient came to the hospital with chief complaint of left flank pain. CT scan of the abdomen and pelvis: Severe left hydroureteronephrosis with extensive left perinephric edema and stranding, significantly worsened since previous examination. This is secondary to a proximal left ureteral calculus measuring 9 mm, grossly unchanged in position. Recommend urology consultation for further management. Extensive left perinephric edema and stranding likely represents sequela of urinary tract infection/pyelonephritis /calyceal rupture. Mild right hydroureteronephrosis. No obstructing right calculus identified. Retroperitoneal lymphadenopathy which is likely related to the underlying left renal process. Other findings as described. Urology consulted by ER physician, Dr. Mcneill. Awaiting recommendations. Pain control with morphine and Pyatt. Follow-up urinalysis. Follow-up at cultures. Procalcitonin elevated, elevated leukocytes, WBC 16.7. Zosyn IV t.i.d. Culturelle 13497 mmu b.i.d. NPO for possible procedure. 09/01/2024: The patient underwent: Left retrograde pyelography. Left retrograde ureteral stent placement. Fluoroscopy with interpretation less than 1 hour on 07/31/[address] Villagran. The patient reports improvement of pain. We will continue antibiotics based on Zosyn, Culturelle [address] mmu b.i.d. pain control. Urinalysis positive for urinary tract infection. Follow-up urine culture and blood cultures. 09/02/2024: WBCs downtrending Continue Zosyn Last night he got a bit agitated and was thought to be withdrawing, this morning while being taken off the BiPAP he is getting tachypneic. This could be secondary from his withdrawal. ABG was done, no acute significant findings noted. Continue BiPAP for now. Avoid Ativan as he is not withdrawing from alcohol Follow up with PT recommendations. 09/03/2024: WBC trending down, reporting mild shortness of breath, elevated proBNP: 4000. Started on Lasix 40 mg b.i.d. IV. Echocardiogram showing LVEF 45-50%, RVSP 43 mmHg. Right ventricle is moderate 80 dilated in size with normal function. We will discontinue IV fluids. We will continue Zosyn IV t.i.d. and probiotic Culturelle 06476 mmu b.i.d. incentive spirometry every 2 hours while awake. 09/04/2024: WBC trended up. MRSA screen positive for Staphylococcus aureus, started on vancomycin. Final urine culture negative. Blood culture negative after three days. Continue Zosyn IV t.i.d. and probiotic Culturelle 23479 mg b.i.d.. Incentive spirometry every 2 hours while awake. Continue furosemide 40 mg b.i.d. IV. Shortness of breath: Possible obstructive sleep apnea: Chronic systolic congestive heart failure with ejection fraction of 45%: The patient complaint of shortness of breath. Echocardiogram showing left ventricular ejection fraction of 45-50%. ProBNP 4000. Lasix 40 mg IV b.i.d. Jardiance 10 mg daily. Metoprolol 50 mg b.i.d. Lisinopril 10 mg daily. BiPAP at night. Diabetic ketoacidosis: Glucose levels: 650, elevated anion gap metabolic acidosis, follow-up urinalysis for ketone bodies. Diabetic ketoacidosis protocol started. On ringer lactate at 250 mL/hour. 09/02/2024 Continue hyperglycemia/hypoglycemia protocol in place. Lantus 30 units HS. High dose short-acting insulin sliding scale. Electrolytes within reference range. 09/03/2024: Elevated glucose levels. Increasing Lantus to 36 units HS. High dose short-acting insulin sliding scale. 09/04/2024: Glucose levels around 245. Increase the Lantus to 42 units HS. High dose short-acting insulin sliding scale. Acute kidney injury likely secondary to obstruction and renal tubular stasis- improved: Creatinine 2.17, GFR 31, BUN/creatinine ratio 22.6. Follow-up urine lytes. Ringer lactate at 250 mL/hour. 09/01/2024: The patient underwent left retrograde ureteral stent placement. Significant improvement of kidney function. Urine lytes showing: FeNa of 0.4%, BUN/creatinine ratio: 22.1 pointing towards prerenal injury. 09/02/2024: Creatinine improving, continue to monitor BMP 09/03/2024: Kidney function improving, patient complaining of shortness of breath. Echocardiogram showing left ventricular ejection fraction of 45-50%. ProBNP 4000. Starting Lasix 40 mg b.i.d., stopping IV fluids. 09/04/2024: Kidney function still improving. The patient reports improvement of shortness of breaths. Started on Lasix yesterday, proBNP trended down from 4132 to 2063. We will continue diuresing. Hypertension: Blood pressure within reference range. Continue lisinopril 10 mg daily. Metoprolol 50 mg b.i.d. Code status: Full code DVT prophylaxis: SCDs Analgesia/sedation: Morphine and Pyatt Line/tube: PIV GI prophylaxis: None Nutrition: 75 carb controlled diet. PT: The patient will require post acute care. Prognosis: Guarded Disposition: Continue medical management. The patient will be discharged to [facility]. Berny Hussein Internal Medicine Resident [facility] Date of Service: Sep 04, 2024 Billing Provider: CUAUHTEMOC GORDON MD Common Visit Codes: [id number] INP/OBS CARE(HIGH) BERNY GARRISON, RES Sep 04, 2024 15:28 CUAUHTEMOC GORDON MD Sep 05, 2024 08:12
[2024-09-04] MEDS: vancomycin/NS 1 GM ADD-VANTAGE 250 ML IV SCH (16:54)
[2024-09-04] MEDS: mirtazapine 15mg tablet PO SCH (20:11)
[2024-09-04] MEDS: insulin glargine (Lantus) pen - multi-dose SQ SCH (21:54)
[2024-09-05] VITALS (10 sets, daily range): BP systolic 91–131; BP diastolic 53–85; PULSE 86–101; RESP 16–23; TEMP 97.4–98.8; O2SAT 90–100
[2024-09-05] MEDS ORDERED: LIDOcaine 2% Viscous 15ml cup MM PRN (05:05)
[2024-09-05] MEDS: gabapentin 300mg capsule PO ONE (05:22)
[2024-09-05] MEDS: MULTIVIT-MIN/FERROUS GLUCONATE 9 MG/15 ML LIQUID PO SCH (05:22)
[2024-09-05 06:55] LABS: BASOPHILS % (AUTO) 0.3 % (0-1); EOSINOPHILS # (AUTO) 0.1 X10'3 (0-0.9); EOSINOPHILS % (AUTO) 1.3 % (0-6); HEMOGLOBIN 13.9 g/dl (14.0-17.9); LYMPHOCYTES # (AUTO) 1.5 X10'3 (1.1-4.8); MEAN CORPUSCULAR HEMOGLOBIN 28.5 PG (27.0-31.0); MEAN CORPUSCULAR HGB CONC 33.8 g/dL (33.0-36.5); MEAN CORPUSCULAR VOLUME 84.1 FL (78-98); MEAN PLATELET VOLUME 8.8 FL (7.4-10.4); MONOCYTES # (AUTO) 0.9 X10'3 (0-0.9); MONOCYTES % (AUTO) 8.4 % (2-12); NEUTROPHILS # (AUTO) 8.1 X10'3 (1.8-7.7); PLATELET COUNT 198 X10'3 (140-440); RED BLOOD COUNT 4.88 X10'6 (4.70-6.10); RED CELL DISTRIBUTION WIDTH 13.7 % (11.5-14.5); WHITE BLOOD COUNT 10.7 X10'3 (4.5-11.0)
[2024-09-05 07:29] LABS: ALANINE AMINOTRANSFERASE 35 U/L (12-78); ALBUMIN 1.7 G/DL (3.4-5.0); ALBUMIN/GLOBULIN RATIO 0.4 (1.1-1.5); ALKALINE PHOSPHATASE 164 IU/L (46-116); ANION GAP 11 (8-16); ASPARTATE AMINO TRANSFERASE 34 U/L (10-37); BILIRUBIN,TOTAL 0.3 MG/DL (0.1-1.0); BLOOD UREA NITROGEN 28 MG/DL (7-18); CALCIUM 8.3 MG/DL (8.5-10.1); CHLORIDE 109 MMOL/L (99-107); CREATININE 1.22 MG/DL (0.60-1.10); GLUCOSE 244 MG/DL (70-104); SODIUM 144 MMOL/L (135-145); TOTAL CARBON DIOXIDE 24.5 MMOL/L (24-32); TOTAL PROTEIN 5.9 G/DL (6.4-8.2); eCRCL 72 ML/MIN; eGFR 61 ML/MIN
[2024-09-05] MEDS: EMPAGLIFLOZIN 25 MG TABLET PO SCH (07:29)
--- NOTE | 2024-09-05 14:26 | DISCHARGE SUMMARY-Residence ---
Discharge Summary Providers to CC Resident Creating Document: LESLIELESLIE CHAVEZPAULA Stratton, RES ~ Discharge Summary Admission Diagnosis: Left ureteral stone, sepsis Hospital Course DATE OF ADMISSION: 08/31/2024 DATE OF DISCHARGE: 09/05/2024 Discharge Diagnosis\Comment: Left flank pain Left kidney stone Left hydroureteronephrosis Sepsis likely secondary to pyelonephritis: POA Sepsis criteria: (heart rate >90, RR > 20, WBC: 16.7, presence of source of infection) S/P Left retrograde ureteral stent placement on 07/31/2024 Shortness of breath Possible obstructive sleep apnea Chronic systolic congestive heart failure with ejection fraction of 45% Bacterial pneumonia likely secondary to MRSA infection: Diabetic ketoacidosis Acute kidney injury likely secondary to obstruction and renal tubular stasis- improved Hypertension Operations\Procedures: Left retrograde ureteral stent placement on 07/31/2024 Consultants: Urology Complications: None Condition on DC: Stable Discharge Summary: HPI: Chun Rich. Urologist: Dr. Felton. 59-year-old male patient with past medical history of diabetes mellitus, hypertension came to the hospital with chief complaint of abdominal pain. The patient reports that his abdominal pain started three weeks ago reason for which he decided to go to [facility] where he was diagnosed with a kidney stone, treated with antibiotics and pain medication, then discharged home. The patient mentioned that his symptoms improved with the antibiotics and pain medication but for the last five days he has been experiencing left flank pain scaled 5/10 in intensity, radiation to the left iliac fossa, described as a sharp type pain, associated to these symptom the patient also endorses subjective on and off fever, chills, anxiety which he associates to his current situation in which his father has been hospitalized. The patient states that he has been passing a lot. The patient also mentioned that he has been having increased urinary frequency, nocturia which kept him awake during the night. The patient currently denies any chest pain, shortness of breath, palpitations, intestinal symptoms. Hospital course: 59-year-old male patient came to the hospital with chief complaint of abdominal pain, CT scan of the abdomen was obtained showing left kidney stone of 9 mm with severe left hydroureteronephrosis, the patient was started on antibiotics based on Zosyn, at the same time the patient also met criteria for sepsis secondary to pyelonephritis. Urology was consulted on the same day of admission on 08/31/2024, Dr. Villagran cocaine the accepted to evaluate the patient. The patient underwent left retrograde ureteral stent placement on 07/31/[address] Villagran. The patient was also started on treatment for diabetic ketoacidosis, initially with insulin drip, blood sugars improved. The patient was transition to insulin glargine gradually increased to 50 units HS. On 09/04/2024, the patient reported shortness of breath, white blood cell count trended up despite treatment with Zosyn, chest x-ray was obtained showing cardiomegaly with pulmonary vascular congestion and bilateral patchy airspace opacities. MRSA screening came back positive. The patient was started on vancomycin. Upon the following day after evaluation white blood cell count with significant improvement, currently within reference range. The patient remained hemodynamically stable, the patient will be discharged to [facility]. Discharge course: The patient remained hemodynamically stable. The patient will be discharged to [facility] with the following instructions: Continue antibiotic therapy based on vancomycin and ceftriaxone 1 g daily IV. Continue Culturelle capsules [address] mmu b.i.d. Continue empagliflozin 25 mg daily. Continue lisinopril 10 mg daily. Continue Fabens 5 mg for moderate pain, 10 mg for severe pain. Continue mirtazapine 50 mg HS. Continue Lantus 50 units HS. Accu-Cheks. Follow-up with a hemoglobin A1c within three months. Physical exam: General: Well alert, well oriented, not agitated, well cooperated during the physical. HEENT: Conjunctive are pink, sclerae clear, no icterus, pupil is equal in both sides, reactive to light, no ear discharge, no pharyngeal erythema or an edema. Neck: Supple, no JVD, no lymphadenopathy and thyromegaly. Chest: Equal air entry on both lungs, no additional sounds no rhonchi no wheezing at the moment. Cardiovascular: S1-S2 regular sinus rhythm and, regular rate, no gallops, no rub s, no murmurs Abdomen: No visible peristalsis, Bowel sounds present on auscultation, soft, tenderness in the left lower abdomen with superficial palpation, no guarding, no rigidity Extremities: No obvious deformities, no pitting edema bilaterally, capillary refill intact, peripheral pulsations are intact on both sides, presence of dermatitis stasis changes in bilateral lower extremities. Central Nervous System: No focal neurological deficits, no motor or sensory weakness in all 4 extremities, could move all 4 extremities, 2+ deep tendon reflexes, negative Babinski. Musculoskeletal: No joint swelling, deformities, inflammations, and no scoliosis, without tenderness. Skin: Warm and dry. presence of dermatitis stasis changes in bilateral lower extremities. Vital Signs Date Time Temp Pulse Resp B/P (MAP) Pulse Ox O2 Delivery O2 Flow Rate FiO2 09/05/24 11:34 90 20 98 Nasal Cannula* 5 40 09/05/24 11:00 97.4 91/53 (66) Laboratory Tests Test 09/03/24 17:17 09/03/24 18:20 09/03/24 18:28 09/03/24 18:33 Glucometer 374 mg/dl 284 mg/dl Blood Gas Specimen Type Arterial Blood Gas Puncture Site Rr O2 Saturation 96.6 % Arterial Blood pH (Temp corrected) 7.469 Arterial Blood pCO2 (Temp correct) 24.2 mmHg Arterial Blood pO2 (Temp corrected) 77.2 mmHg Arterial Blood PO2/FiO2 Ratio 2.59 mmHg/% Arterial Blood HCO3 17.2 mmol/L Arterial Blood Base Excess -4.4 mmol/L Arterial Blood Oxyhemoglobin 96.0 % Arterial Blood Carboxyhemoglobin 0.6 % Arterial Blood Methemoglobin 0.0 % Arterial Blood Deoxyhemoglobin 3.4 % Manuel Test Modified Blood Gas Hemoglobin 15.3 G/dl Blood Gas Temperature 36.9 Blood Gas Modality bipap FiO2 30.0 mmHg/% Blood Gas Critical Value Called To laila CBC Comment Coagulation Comments Chemistry Comments Test 09/03/24 20:57 09/03/24 21:48 09/04/24 04:42 09/04/24 07:08 White Blood Count 14.9 X10'3 19.6 X10'3 Red Blood Count 5.28 X10'6 4.92 X10'6 Hemoglobin 14.7 g/dl 13.7 g/dl Hematocrit 45.1 % 42.2 % Mean Corpuscular Volume 85.4 FL 85.6 FL Mean Corpuscular Hemoglobin 27.9 PG 27.8 PG Mean Corpuscular Hemoglobin Concent 32.7 g/dL 32.4 g/dL Red Cell Distribution Width 14.0 % 14.2 % Platelet Count 230 X10'3 220 X10'3 Mean Platelet Volume 9.1 FL 8.9 FL Neutrophils (%) (Auto) 90.1 % 85.5 % Lymphocytes (%) (Auto) 5.0 % 7.5 % Monocytes (%) (Auto) 4.8 % 6.8 % Eosinophils (%) (Auto) 0.1 % 0.1 % Basophils (%) (Auto) 0 % 0.1 % Neutrophils # (Auto) 13.4 X10'3 16.8 X10'3 Lymphocytes # (Auto) 0.8 X10'3 1.5 X10'3 Monocytes # (Auto) 0.7 X10'3 1.3 X10'3 Eosinophils # (Auto) 0.0 X10'3 0.0 X10'3 Basophils # (Auto) 0.0 X10'3 0.0 X10'3 CBC Comment Prothrombin Time 12.4 SECONDS INR International Normalized Ratio 1.2 INR Activated Partial Thromboplast Time 25 SECONDS Coagulation Comments Sodium Level 141 MMOL/L 141 MMOL/L Potassium Level 4.2 MMOL/L 4.7 MMOL/L Chloride Level 106 MMOL/L 108 MMOL/L Carbon Dioxide Level 24.5 MMOL/L 24.5 MMOL/L Anion Gap 11 9 Blood Urea Nitrogen 30 MG/DL 36 MG/DL Creatinine 1.54 MG/DL 1.52 MG/DL Estimated GFR/1.73 m2 46 ML/MIN 47 ML/MIN BUN/Creatinine Ratio 19.5 23.7 Glucose Level 333 MG/DL 286 MG/DL Calcium Level 8.1 MG/DL 8.3 MG/DL Magnesium Level 2.0 MG/DL 2.1 MG/DL Total Bilirubin 0.3 MG/DL 0.3 MG/DL Aspartate Amino Transf (AST/SGOT) 21 U/L 38 U/L Alanine Aminotransferase (ALT/SGPT) 30 U/L 36 U/L Alkaline Phosphatase 187 IU/L 185 IU/L Troponin I High Sensitivity 14 ng/L Pro-B-Type Natriuretic Peptide 2064 PG/ML Total Protein 6.5 G/DL 5.9 G/DL Albumin 1.6 G/DL 1.4 G/DL Globulin 4.9 G/DL 4.5 G/DL Albumin/Globulin Ratio 0.3 0.3 Chemistry Comments Glucometer 357 mg/dl 263 mg/dl Lactic Acid Level 2.9 MMOL/L Test 09/04/24 08:55 09/04/24 11:54 09/04/24 16:52 09/04/24 21:30 Erythrocyte Sedimentation Rate 34 MM/HR Lactic Acid Level 3.3 MMOL/L C-Reactive Protein 6.56 MG/DL Procalcitonin 0.74 NG/ML Glucometer 245 mg/dl 144 mg/dl 199 mg/dl Test 09/05/24 05:55 09/05/24 07:27 09/05/24 12:15 White Blood Count 10.7 X10'3 Red Blood Count 4.88 X10'6 Hemoglobin 13.9 g/dl Hematocrit 41.0 % Mean Corpuscular Volume 84.1 FL Mean Corpuscular Hemoglobin 28.5 PG Mean Corpuscular Hemoglobin Concent 33.8 g/dL Red Cell Distribution Width 13.7 % Platelet Count 198 X10'3 Mean Platelet Volume 8.8 FL Neutrophils (%) (Auto) 76.0 % Lymphocytes (%) (Auto) 14.0 % Monocytes (%) (Auto) 8.4 % Eosinophils (%) (Auto) 1.3 % Basophils (%) (Auto) 0.3 % Neutrophils # (Auto) 8.1 X10'3 Lymphocytes # (Auto) 1.5 X10'3 Monocytes # (Auto) 0.9 X10'3 Eosinophils # (Auto) 0.1 X10'3 Basophils # (Auto) 0.0 X10'3 CBC Comment Erythrocyte Sedimentation Rate 27 MM/HR Sodium Level 144 MMOL/L Potassium Level 4.0 MMOL/L Chloride Level 109 MMOL/L Carbon Dioxide Level 24.5 MMOL/L Anion Gap 11 Blood Urea Nitrogen 28 MG/DL Creatinine 1.22 MG/DL Estimated GFR/1.73 m2 61 ML/MIN BUN/Creatinine Ratio 23.0 Glucose Level 244 MG/DL Calcium Level 8.3 MG/DL Total Bilirubin 0.3 MG/DL Aspartate Amino Transf (AST/SGOT) 34 U/L Alanine Aminotransferase (ALT/SGPT) 35 U/L Alkaline Phosphatase 164 IU/L Total Protein 5.9 G/DL Albumin 1.7 G/DL Globulin 4.2 G/DL Albumin/Globulin Ratio 0.4 Procalcitonin 0.40 NG/ML Chemistry Comments Glucometer 197 mg/dl 179 mg/dl *Problems/Diagnosis: (1) Ureteral stone with hydronephrosis Status: Acute (2) Systolic congestive heart failure Status: Chronic (3) MRSA pneumonia Status: Acute (4) DKA (diabetic ketoacidosis) Status: Resolved (5) Sepsis Status: Resolved (6) Obstructive uropathy Status: Acute (7) Acute kidney injury Status: Acute (8) Uncontrolled diabetes mellitus Status: Acute (9) Kidney stone Status: Acute Total Time Spent on D/C: > 30 Minutes Date of Service: Sep 05, 2024 Billing Provider: CUAUHTEMOC GORDON MD Common Visit Codes: 77923-ZWG/OBS DISCH DAY >30min Problem Qualifiers (1) MRSA pneumonia: Laterality: unspecified laterality (2) DKA (diabetic ketoacidosis): Diabetes mellitus type: type 1 Diabetes mellitus complication detail: without coma Qualified Codes: E10.10 - Type 1 diabetes mellitus with ketoacidosis without coma (3) Sepsis: Sepsis type: sepsis due to unspecified organism Sepsis acute organ dysfunction status: with acute organ dysfunction Severe sepsis acute organ dysfunction type: acute renal failure Acute renal failure type: unspecified Severe sepsis shock status: without septic shock Qualified Codes: A41.9 - Sepsis, unspecified organism; R65.20 - Severe sepsis without septic shock; N17.9 - Acute kidney failure, unspecified PAULA GARRISON, RES Sep 05, 2024 14:25 CUAUHTEMOC GORDON MD Sep 06, 2024 07:42
[2024-09-06] MEDS ORDERED: VANCOMYCIN LEVEL IV ONE (03:30)
== END 2024-09-05 18:20 | DRG 720 ==
LOC: ER 13:38 → ED HOLD 18:39 → PCU 3S 23:15
PROVIDERS: ADMIT Internal Medicine; ATTEND Internal Medicine
PROC: BT1F1ZZ Fluoroscopy of Left Kidney, Ureter and Bladder using Low Osmolar Contrast (ICD-10-PCS; 2024-08-31)
PROC: BW211ZZ Computerized Tomography (CT Scan) of Abdomen and Pelvis using Low Osmolar Contrast (ICD-10-PCS; 2024-08-31)
PROC: 5A09357 Assistance with Respiratory Ventilation, Less than 24 Consecutive Hours, Continuous Positive Airway Pressure (ICD-10-PCS; 2024-08-31)
PROC: 0T778DZ Dilation of Left Ureter with Intraluminal Device, Via Natural or Artificial Opening Endoscopic (ICD-10-PCS; principal; 2024-08-31 20:30)
PROC: 5A09357 Assistance with Respiratory Ventilation, Less than 24 Consecutive Hours, Continuous Positive Airway Pressure (ICD-10-PCS; 2024-09-03)
DX: A41.9 Sepsis, unspecified organism (principal); N17.0 Acute kidney failure with tubular necrosis; E10.10 Type 1 diabetes mellitus with ketoacidosis without coma; J15.29 Pneumonia due to other staphylococcus; I11.0 Hypertensive heart disease with heart failure; I50.22 Chronic systolic (congestive) heart failure; F15.10 Other stimulant abuse, uncomplicated; G47.33 Obstructive sleep apnea (adult) (pediatric); R65.20 Severe sepsis without septic shock; N13.6 Pyonephrosis; Z79.4 Long term (current) use of insulin; Z79.899 Other long term (current) drug therapy
CPT/HCPCS: 36415; 36600; 71045; 74019; 74176; 80048; 80053; 80061; 80076; 80305; 81001; 82570; 82803; 82948; 83036; 83605; 83735; 83880; 83930; 83935; 84100; 84145; 84156; 84300; 84484; 84540; 85018; 85025; 85610; 85651; 85730; 86140; 87040; 87081; 87088; 87207; 93005; 93306; 94660; 94760; 96361; 96365; 97110; 97161; 97530; 99291; A4355; A4615; A4618; A6213; A6590; C1758; C1769; C2617; G0378; J0690; J1815; J1940; J2003; J2060; J2250; J2270; J2405; J2543; J2704; J2765; J2919; J3010; J3370; J7030; J7040; J7120; Q9967